=== PATIENT | female | born 1935 | race Caucasian/White ===

== ENCOUNTER → 2017-08-25 12:16 | Outpatient (CLI) | payer MEDICARE, SELFPAY ==
[2017-08-25 12:50] LABS: INR 2.3 (0.9-1.3); Prothrombin Time 24.4 SECONDS (10.1-12.7)
== END ==
PROVIDERS: Family Provider Family Medicine; PCP Family Medicine; Visit Provider Internal Medicine Cardiovascular Disease
DX: I48.2 Chronic atrial fibrillation (principal)
CPT/HCPCS: 36415; 85610

== ENCOUNTER → 2017-09-23 11:57 | Outpatient (CLI) | payer MEDICARE, SELFPAY ==
[2017-09-09 12:27] VITALS: BMI 21.6
[2017-09-23 13:30] LABS: INR 2.9 (0.9-1.3)
== END ==
PROVIDERS: Family Provider Family Medicine; PCP Family Medicine; Visit Provider Internal Medicine Cardiovascular Disease
DX: I48.2 Chronic atrial fibrillation (principal)
CPT/HCPCS: 36415; 85610

== ENCOUNTER → 2017-10-02 09:58 | Outpatient (CLI) | payer MEDICARE, SELFPAY ==
[2017-09-09 12:27] VITALS: BMI 21.6
[2017-10-02 11:20] LABS: Alanine Aminotransferase 25 IU/L (9-52); Albumin 4.1 g/dL (3.5-5.0); Albumin Globulin Ratio 1.6 (1.0-2.8); Alkaline Phosphatase 49 U/L (38-126); Aspartate Aminotransferase 23 IU/L (14-36); BUN Creatinine Ratio 25.5 (6-22); Bilirubin Total 1.1 mg/dL (0.2-1.3); Blood Urea Nitrogen 28 mg/dL (7-17); Calcium 9.3 mg/dL (8.4-10.2); Carbon Dioxide 31 mmol/L (22-32); Chloride 102 mmol/L (98-107); Estimated Glomerular Filt Rate 47.4 mL/min (>60); Globulin 2.6 g/dL (1.7-4.1); Glucose 86 mg/dL (80-110); HEMOLYSIS < 15 (0-50); Magnesium 2.1 mg/dL (1.6-2.3); Potassium 4.9 mmol/L (3.4-5.1); Sodium 142 mmol/L (137-145); Total Protein 6.7 g/dL (6.3-8.2)
== END ==
PROVIDERS: Family Provider Family Medicine; PCP Family Medicine; Visit Provider Internal Medicine Cardiovascular Disease
DX: I50.21 Acute systolic (congestive) heart failure (principal)
CPT/HCPCS: 36415; 80053; 83735

== ENCOUNTER → 2017-10-29 10:41 | Outpatient (CLI) | payer MEDICARE, SELFPAY ==
[2017-09-09 12:27] VITALS: BMI 21.6
[2017-10-29 12:11] LABS: INR 2.1 (0.9-1.3); Prothrombin Time 22.2 SECONDS (10.1-12.7)
== END ==
PROVIDERS: Family Provider Family Medicine; PCP Family Medicine; Visit Provider Internal Medicine Cardiovascular Disease
DX: I48.2 Chronic atrial fibrillation (principal)
CPT/HCPCS: 36415; 85610

== ENCOUNTER → 2017-11-12 12:07 | Outpatient (CLI) | payer MEDICARE, SELFPAY ==
[2017-09-09 12:27] VITALS: BMI 21.6
[2017-11-12 13:36] LABS: INR 2.3 (0.9-1.3); Prothrombin Time 25.9 SECONDS (10.1-12.7)
== END ==
PROVIDERS: Family Provider Family Medicine; PCP Family Medicine; Visit Provider Internal Medicine Cardiovascular Disease
DX: I48.2 Chronic atrial fibrillation (principal)
CPT/HCPCS: 36415; 85610

== ENCOUNTER → 2017-11-26 08:23 | Outpatient (CLI) | payer MEDICARE, SELFPAY ==
[2017-11-25 12:28] VITALS: BMI 21.6
[2017-11-26 10:32] LABS: INR 1.5 (0.9-1.3); Prothrombin Time 16.2 SECONDS (10.1-12.7)
== END ==
PROVIDERS: Family Provider Family Medicine; PCP Family Medicine; Visit Provider Internal Medicine Cardiovascular Disease
DX: I48.2 Chronic atrial fibrillation (principal)
CPT/HCPCS: 36415; 85610

== ENCOUNTER → 2017-12-01 09:08 | Outpatient (CLI) | payer MEDICARE, SELFPAY ==
[2017-11-25 12:28] VITALS: BMI 21.6
[2017-12-01 09:31] LABS: Add Manual Diff / Slide Review NO; Basophils Percent Auto 0.8 % (0-2); Eosinophils Percent Auto 2.1 % (2-4); Hematocrit 32.5 % (36-46); Hemoglobin 10.7 g/dL (12.0-16.0); Lymphocytes Percent Auto 12.2 % (25-40); Mean Corpuscular Volume 96.9 fL (80-100); Monocytes Percent Auto 8.8 % (3-14); Neutrophils Absolute Auto 6000 /uL (3000-5900); Neutrophils Percent Auto 76.1 % (50-75); Red Blood Cell Count 3.36 X10^6/uL (4.0-5.2); White Blood Cell Count 7.9 X10^3/uL (4.5-11.0)
[2017-12-01 09:33] LABS: Platelet Count 38 X10^3/uL (150-400)
[2017-12-01 09:51] LABS: Platelet Estimate Adequate on smear
[2017-12-01 09:52] LABS: Platelet Clumps 3; Platelet Morphology Comment PLATELET CLUMPING
[2017-12-01 10:08] LABS: INR 2.9 (0.9-1.3); Prothrombin Time 32.1 SECONDS (10.1-12.7)
== END ==
PROVIDERS: Family Provider Family Medicine; PCP Family Medicine; Visit Provider Physician Assistant
DX: I48.2 Chronic atrial fibrillation (principal); Z98.890 Other specified postprocedural states; Z95.1 Presence of aortocoronary bypass graft; D69.6 Thrombocytopenia, unspecified
CPT/HCPCS: 36415; 85025; 85610

== ENCOUNTER → 2017-12-04 08:44 | Outpatient (CLI) | payer MEDICARE, SELFPAY ==
[2017-11-25 12:28] VITALS: BMI 21.6
[2017-12-04 09:14] LABS: INR 2.8 (0.9-1.3)
[2017-12-04 10:26] LABS: Platelet Count 72 X10^3/uL (150-400)
== END ==
PROVIDERS: Family Provider Family Medicine; PCP Family Medicine; Visit Provider Internal Medicine Cardiovascular Disease
DX: I48.2 Chronic atrial fibrillation (principal); Z79.01 Long term (current) use of anticoagulants; Z98.890 Other specified postprocedural states; D69.6 Thrombocytopenia, unspecified
CPT/HCPCS: 36415; 85049; 85610

== ENCOUNTER → 2017-12-08 09:05 | Outpatient (CLI) | payer MEDICARE, SELFPAY ==
[2017-11-25 12:28] VITALS: BMI 21.6
[2017-12-08 09:31] LABS: INR 2.8 (0.9-1.3); Prothrombin Time 31.4 SECONDS (10.1-12.7)
[2018-01-08 13:34] LABS: Prothrombin Time 54.4 SECONDS (10.1-12.7)
[2018-01-08 14:02] LABS: INR 4.9 (0.9-1.3)
== END ==
PROVIDERS: PCP Family Medicine; Visit Provider Internal Medicine Cardiovascular Disease
DX: I48.2 Chronic atrial fibrillation (principal)
CPT/HCPCS: 36415; 85610

== ENCOUNTER → 2017-12-16 10:24 | Outpatient (CLI) | payer MEDICARE, SELFPAY ==
[2017-11-25 12:28] VITALS: BMI 21.6
[2017-12-16 11:31] LABS: INR 4.2 (0.9-1.3); Prothrombin Time 46.1 SECONDS (10.1-12.7)
== END ==
PROVIDERS: Family Provider Family Medicine; PCP Family Medicine; Visit Provider Internal Medicine Cardiovascular Disease
DX: I48.2 Chronic atrial fibrillation (principal)
CPT/HCPCS: 36415; 85610

== ENCOUNTER → 2017-12-25 10:50 | Outpatient (CLI) | payer MEDICARE, SELFPAY ==
[2017-11-25 12:28] VITALS: BMI 21.6
[2017-12-25 12:47] LABS: INR 2.3 (0.9-1.3); Prothrombin Time 25.8 SECONDS (10.1-12.7)
== END ==
PROVIDERS: Family Provider Family Medicine; PCP Family Medicine; Visit Provider Internal Medicine Cardiovascular Disease
DX: I48.2 Chronic atrial fibrillation (principal)
CPT/HCPCS: 36415; 85610

== ENCOUNTER → 2018-01-08 11:46 | Outpatient (CLI) | payer MEDICARE, SELFPAY ==
[2017-11-25 12:28] VITALS: BMI 21.6
== END ==
PROVIDERS: Visit Provider Internal Medicine Cardiovascular Disease
DX: I50.21 Acute systolic (congestive) heart failure (principal)

== ENCOUNTER → 2018-01-21 13:21 | Outpatient (CLI) | payer MEDICARE, SELFPAY ==
[2017-11-25 12:28] VITALS: BMI 21.6
[2018-01-21 14:26] LABS: INR 2.2 (0.9-1.3); Prothrombin Time 24.5 SECONDS (10.1-12.7)
== END ==
PROVIDERS: Family Provider Family Medicine; Visit Provider Pharmacist
DX: I48.2 Chronic atrial fibrillation (principal)
CPT/HCPCS: 36415; 85610

== ENCOUNTER → 2018-02-04 13:53 | Outpatient (CLI) | payer MEDICARE, SELFPAY ==
[2017-11-25 12:28] VITALS: BMI 21.6
[2018-02-04 15:33] LABS: INR 2.6 (0.9-1.3); Prothrombin Time 28.3 SECONDS (10.1-12.7)
== END ==
PROVIDERS: Visit Provider Internal Medicine Cardiovascular Disease
DX: I48.2 Chronic atrial fibrillation (principal)
CPT/HCPCS: 36415; 85610

== ENCOUNTER → 2018-02-25 14:00 | Outpatient (CLI) | payer MEDICARE, SELFPAY ==
[2017-11-25 12:28] VITALS: BMI 21.6
[2018-02-25 15:09] LABS: INR 2.1 (0.9-1.3); Prothrombin Time 23.3 SECONDS (10.1-12.7)
== END ==
PROVIDERS: Family Provider Family Medicine; PCP Family Medicine; Visit Provider Internal Medicine Cardiovascular Disease
DX: I48.2 Chronic atrial fibrillation (principal)
CPT/HCPCS: 36415; 85610

== ENCOUNTER → 2018-04-13 11:17 | Outpatient (CLI) | payer MEDICARE, SELFPAY ==
[2017-11-25 12:28] VITALS: BMI 21.6
[2018-04-13 12:24] LABS: INR 2.1 (0.9-1.3); Prothrombin Time 23.9 SECONDS (10.1-12.7)
== END ==
PROVIDERS: PCP Family Medicine; Visit Provider Internal Medicine Cardiovascular Disease
DX: I48.2 Chronic atrial fibrillation (principal)
CPT/HCPCS: 36415; 85610

== ENCOUNTER → 2018-06-22 10:24 | Outpatient (CLI) | payer MEDICARE, SELFPAY ==
[2017-11-25 12:28] VITALS: BMI 21.6
[2018-06-22 12:00] LABS: INR 2.6 (0.9-1.3); Prothrombin Time 30.7 SECONDS (10.1-12.7)
== END ==
PROVIDERS: Family Provider Family Medicine; PCP Family Medicine; Visit Provider Internal Medicine Cardiovascular Disease
DX: I48.2 Chronic atrial fibrillation (principal)
CPT/HCPCS: 36415; 85610

== ENCOUNTER → 2018-07-23 11:31 | Outpatient (CLI) | payer MEDICARE, SELFPAY ==
[2017-11-25 12:28] VITALS: BMI 21.6
[2018-07-23 12:45] LABS: INR 2.4 (0.9-1.3); Prothrombin Time 28.4 SECONDS (10.1-12.7)
== END ==
PROVIDERS: Family Provider Family Medicine; Visit Provider Internal Medicine Cardiovascular Disease
DX: I48.2 Chronic atrial fibrillation (principal)
CPT/HCPCS: 36415; 85610

== ENCOUNTER → 2018-07-24 12:15 | Outpatient (CLI) | payer MEDICARE, SELFPAY ==
[2017-11-25 12:28] VITALS: BMI 21.6
--- NOTE | 2018-07-24 | DI.MG.S_ITS ---
BILATERAL DIGITAL SCREENING MAMMOGRAM 3D/2D WITH CAD: 07/24/2018 CLINICAL: Routine screening. Comparison is made to exams dated: 07/25/2016 mammogram, 08/15/2014 mammogram - [facility], and 06/16/2012 mammogram - [facility]. The tissue of both breasts is heterogeneously dense. This may lower the sensitivity of mammography. Current study was also evaluated with a Computer Aided Detection (CAD) system. There are benign calcifications in both breasts. No significant masses, calcifications, or other findings are seen in either breast. There has been no significant interval change. IMPRESSION: There is no mammographic evidence of malignancy. A 1 year screening mammogram is recommended. This exam was interpreted at Station ID: [id number]. NOTE: For mammograms, a report in lay terms will be sent to the patient. Approximately 15% of breast malignancies will not be visualized mammographically. In the management of a palpable breast mass, a negative mammogram must not discourage biopsy of a clinically suspicious lesion. Electronically Signed By: Catrachito spain/glenn:07/24/2018 14:53:12 letter sent: Normal Exam ACR BI-RADS Category 2: Benign Finding(s) 3342F
== END ==
PROVIDERS: Family Provider Family Medicine; PCP Family Medicine; Visit Provider Family Medicine
DX: Z12.31 Encounter for screening mammogram for malignant neoplasm of breast (principal)
CPT/HCPCS: 77063; 77067

== ENCOUNTER → 2018-08-25 12:08 | Outpatient (CLI) | payer MEDICARE, SELFPAY ==
[2017-11-25 12:28] VITALS: BMI 21.6
[2018-08-25 12:39] LABS: INR 1.9 (0.9-1.3); Prothrombin Time 22.7 SECONDS (10.1-12.7)
== END ==
PROVIDERS: Family Provider Family Medicine; PCP Family Medicine; Visit Provider Internal Medicine Cardiovascular Disease
DX: I48.2 Chronic atrial fibrillation (principal)
CPT/HCPCS: 36415; 85610

== ENCOUNTER → 2018-09-15 11:40 | Outpatient (CLI) | payer MEDICARE, SELFPAY ==
[2017-11-25 12:28] VITALS: BMI 21.6
[2018-09-15 13:05] LABS: INR 2.3 (0.9-1.3); Prothrombin Time 27.2 SECONDS (10.1-12.7)
== END ==
PROVIDERS: Family Provider Family Medicine; PCP Family Medicine; Visit Provider Internal Medicine Cardiovascular Disease
DX: I48.2 Chronic atrial fibrillation (principal)
CPT/HCPCS: 36415; 85610

== ENCOUNTER → 2018-10-13 15:20 | Outpatient (CLI) | payer MEDICARE, SELFPAY ==
[2017-11-25 12:28] VITALS: BMI 21.6
[2018-10-13 15:53] LABS: INR 2.9 (0.9-1.3); Prothrombin Time 34.5 SECONDS (10.1-12.7)
== END ==
PROVIDERS: Family Provider Family Medicine; PCP Family Medicine; Visit Provider Internal Medicine Cardiovascular Disease
DX: I48.91 Unspecified atrial fibrillation (principal)
CPT/HCPCS: 36415; 85610

== ENCOUNTER → 2018-11-12 13:28 | Outpatient (CLI) | payer MEDICARE, SELFPAY ==
[2017-11-25 12:28] VITALS: BMI 21.6
[2018-11-12 14:59] LABS: INR 3.7 (0.9-1.3); Prothrombin Time 43.3 SECONDS (10.1-12.7)
== END ==
PROVIDERS: PCP Family Medicine; Visit Provider Internal Medicine Cardiovascular Disease
DX: I48.2 Chronic atrial fibrillation (principal)
CPT/HCPCS: 36415; 85610

== ENCOUNTER → 2018-11-26 09:01 | Outpatient (CLI) | payer MEDICARE, SELFPAY ==
[2017-11-25 12:28] VITALS: BMI 21.6
[2018-11-26 09:45] LABS: INR 2.4 (0.9-1.3); Prothrombin Time 27.8 SECONDS (10.1-12.7)
== END ==
PROVIDERS: Family Provider Family Medicine; PCP Family Medicine; Visit Provider Internal Medicine Cardiovascular Disease
DX: I48.2 Chronic atrial fibrillation (principal)
CPT/HCPCS: 36415; 85610

== ENCOUNTER → 2018-12-22 09:29 | Outpatient (CLI) | payer MEDICARE, SELFPAY ==
[2017-11-25 12:28] VITALS: BMI 21.6
[2018-12-22 10:33] LABS: INR 2.1 (0.9-1.3); Prothrombin Time 23.9 SECONDS (10.1-12.7)
== END ==
PROVIDERS: PCP Family Medicine; Visit Provider Internal Medicine Cardiovascular Disease
DX: I48.2 Chronic atrial fibrillation (principal)
CPT/HCPCS: 36415; 85610

== ENCOUNTER → 2019-01-19 13:31 | Outpatient (CLI) | payer MEDICARE, SELFPAY ==
[2017-11-25 12:28] VITALS: BMI 21.6
[2019-01-19 14:44] LABS: INR 2.5 (0.9-1.3)
== END ==
PROVIDERS: Family Provider Family Medicine; PCP Family Medicine; Visit Provider Internal Medicine Cardiovascular Disease
DX: I48.20 Chronic atrial fibrillation, unspecified (principal)
CPT/HCPCS: 36415; 85610

== ENCOUNTER → 2019-02-10 14:09 | Outpatient (CLI) | payer MEDICARE, SELFPAY ==
[2017-11-25 12:28] VITALS: BMI 21.6
[2019-02-10 15:04] LABS: Prothrombin Time 23.2 SECONDS (10.1-12.7)
== END ==
PROVIDERS: Family Provider Family Medicine; PCP Family Medicine; Visit Provider Internal Medicine Cardiovascular Disease
DX: I48.20 Chronic atrial fibrillation, unspecified (principal); R06.02 Shortness of breath; D64.89 Other specified anemias; D69.6 Thrombocytopenia, unspecified; I50.22 Chronic systolic (congestive) heart failure
CPT/HCPCS: 36415; 85610

== ENCOUNTER → 2019-03-24 15:56 | Outpatient (CLI) | payer MEDICARE, SELFPAY ==
[2017-11-25 12:28] VITALS: BMI 21.6
[2019-03-24 17:01] LABS: INR 2.5 (0.9-1.3); Prothrombin Time 29.9 SECONDS (10.1-12.7)
== END ==
PROVIDERS: Family Provider Family Medicine; PCP Family Medicine; Visit Provider Internal Medicine Cardiovascular Disease
DX: I48.20 Chronic atrial fibrillation, unspecified (principal)
CPT/HCPCS: 36415; 85610

== ENCOUNTER → 2019-05-10 09:57 | Outpatient (CLI) | payer MEDICARE, SELFPAY ==
[2017-11-25 12:28] VITALS: BMI 21.6
[2019-05-10 10:51] LABS: INR 2.3 (0.9-1.3); Prothrombin Time 26.7 SECONDS (10.1-12.7)
== END ==
PROVIDERS: Family Provider Family Medicine; PCP Family Medicine; Visit Provider Family Medicine
DX: I48.20 Chronic atrial fibrillation, unspecified (principal)
CPT/HCPCS: 36415; 85610

== ENCOUNTER → 2019-07-12 13:45 | Outpatient (CLI) | payer MEDICARE, SELFPAY ==
[2017-11-25 12:28] VITALS: BMI 21.6
[2019-07-12 15:06] LABS: INR 2.4 (0.9-1.3); Prothrombin Time 27.9 SECONDS (10.1-12.7)
== END ==
PROVIDERS: Family Provider Family Medicine; PCP Family Medicine; Referring Provider Family Medicine; Visit Provider Internal Medicine Cardiovascular Disease
DX: I48.20 Chronic atrial fibrillation, unspecified (principal)
CPT/HCPCS: 36415; 85610

== ENCOUNTER → 2019-09-28 14:00 | Outpatient (CLI) | payer MEDICARE, SELFPAY ==
[2017-11-25 12:28] VITALS: BMI 21.6
[2019-09-28 14:53] LABS: Prothrombin Time 33.9 SECONDS (10.1-12.7)
== END ==
PROVIDERS: Family Provider Family Medicine; PCP Family Medicine; Referring Provider Internal Medicine Cardiovascular Disease; Visit Provider Internal Medicine Cardiovascular Disease
DX: I48.20 Chronic atrial fibrillation, unspecified (principal)
CPT/HCPCS: 36415; 85610

== ENCOUNTER → 2019-10-29 13:54 | Outpatient (CLI) | payer MEDICARE, SELFPAY ==
[2017-11-25 12:28] VITALS: BMI 21.6
--- NOTE | 2019-10-29 | DI.RAD.S_ITS ---
PROCEDURE: XR HIP W PEL IF DONE RT 2V INDICATIONS: right hip pain TECHNIQUE: 2 views of the hip were acquired. COMPARISON: None. FINDINGS: Bones: No fractures or dislocations. No suspicious bony lesions. The visualized pelvic ring appears intact. Mild joint narrowing with periarticular osteophyte formation. Degenerative disc and facet disease involves the inferior lumbar spine. Soft tissues: No suspicious soft tissue calcifications or masses. Vascular calcifications indicate atherosclerosis. IMPRESSION: Mild symmetric hip joint degeneration. Dictated by: Cristhian Cyr [facility] Interpreted: Bridger Jackson MD on 10/29/2019 at 14:49 Approved by: Bridger Jackson M.D. on 10/29/2019 at 15:52
--- NOTE | 2019-10-29 | DI.RAD.S_ITS ---
PROCEDURE: XR SACROILIAC JOINT MIN 3V INDICATIONS: SI joint disorder TECHNIQUE: 3 views of the sacroiliac joints were acquired. COMPARISON: None. FINDINGS: Bones: No bony erosions or ankylosis. No suspicious bony lesions. No fractures. Mild joint narrowing with periarticular osteophyte formation. Degenerative disc and facet disease involves the inferior lumbar spine. Soft tissues: Overlying bowel gas pattern is normal. No suspicious soft tissue densities. IMPRESSION: Mild symmetric SI joint degeneration. Dictated by: Cristhian Cyr [facility] Interpreted: Bridger Jackson MD on 10/29/2019 at 14:48 Approved by: Bridger Jackson M.D. on 10/29/2019 at 15:52
== END ==
PROVIDERS: Family Provider Family Medicine; PCP Family Medicine; Referring Provider Family Medicine; Visit Provider Family Medicine
DX: M53.3 Sacrococcygeal disorders, not elsewhere classified (principal); M47.818 Spondylosis without myelopathy or radiculopathy, sacral and sacrococcygeal region; M25.551 Pain in right hip; M16.11 Unilateral primary osteoarthritis, right hip
CPT/HCPCS: 72202; 73502

== ENCOUNTER → 2019-11-12 10:10 | Outpatient (CLI) | payer MEDICARE, SELFPAY ==
[2017-11-25 12:28] VITALS: BMI 21.6
--- NOTE | 2019-11-12 | DI.MG.S_ITS ---
BILATERAL DIGITAL SCREENING MAMMOGRAM 3D/2D WITH CAD: 11/12/2019 CLINICAL: Routine screening. Comparison is made to exams dated: 07/24/2018 mammogram, 07/25/2016 mammogram, and 08/15/2014 mammogram - [facility]. There are scattered fibroglandular elements in both breasts. Current study was also evaluated with a Computer Aided Detection (CAD) system. There are benign calcifications in the left breast. There also are benign vascular calcifications in the right breast. No significant masses, calcifications, or other findings are seen in either breast. There has been no significant interval change. IMPRESSION: There is no mammographic evidence of malignancy. A 1 year screening mammogram is recommended. This exam was interpreted at Station ID: [id number]. NOTE: For mammograms, a report in lay terms will be sent to the patient. Approximately 15% of breast malignancies will not be visualized mammographically. In the management of a palpable breast mass, a negative mammogram must not discourage biopsy of a clinically suspicious lesion. Electronically Signed By: Sabrina moseley/glenn:11/12/2019 10:28:43 letter sent: Normal Exam ACR BI-RADS Category 2: Benign Finding(s) 3342F
== END ==
PROVIDERS: Family Provider Family Medicine; PCP Family Medicine; Referring Provider Family Medicine; Visit Provider Family Medicine
DX: Z12.31 Encounter for screening mammogram for malignant neoplasm of breast (principal)
CPT/HCPCS: 77063; 77067

== ENCOUNTER → 2020-02-02 10:00 | Outpatient (CLI) | payer MEDICARE, SELFPAY ==
[2017-11-25 12:28] VITALS: BMI 21.6
[2020-02-02 11:23] LABS: INR 3.7 (0.9-1.3); Prothrombin Time 41.8 SECONDS (10.1-12.7)
== END ==
PROVIDERS: Family Provider Family Medicine; PCP Family Medicine; Referring Provider Internal Medicine Cardiovascular Disease; Visit Provider Internal Medicine Cardiovascular Disease
DX: I48.20 Chronic atrial fibrillation, unspecified (principal)
CPT/HCPCS: 36415; 85610

== ENCOUNTER → 2020-02-23 12:30 | Outpatient (CLI) | payer MEDICARE, SELFPAY ==
[2017-11-25 12:28] VITALS: BMI 21.6
[2020-02-23 14:41] LABS: INR 2.8 (0.9-1.3); Prothrombin Time 32.6 SECONDS (10.1-12.7)
== END ==
PROVIDERS: Family Provider Family Medicine; PCP Family Medicine; Referring Provider Internal Medicine Cardiovascular Disease; Visit Provider Internal Medicine Cardiovascular Disease
DX: I48.20 Chronic atrial fibrillation, unspecified (principal)
CPT/HCPCS: 36415; 85610

== ENCOUNTER → 2020-03-29 15:51 | Outpatient (CLI) | payer MEDICARE, SELFPAY ==
[2017-11-25 12:28] VITALS: BMI 21.6
[2020-03-29 16:44] LABS: INR 3.1 (0.9-1.3); Prothrombin Time 35.9 SECONDS (10.1-12.7)
== END ==
PROVIDERS: Family Provider Family Medicine; PCP Family Medicine; Referring Provider Internal Medicine Cardiovascular Disease; Visit Provider Internal Medicine Cardiovascular Disease
DX: I48.20 Chronic atrial fibrillation, unspecified (principal)
CPT/HCPCS: 36415; 85610

== ENCOUNTER → 2020-03-30 17:50 | Outpatient (CLI) | payer MEDICARE, SELFPAY ==
[2017-11-25 12:28] VITALS: BMI 21.6
--- NOTE | 2020-03-30 17:52 | DI.MRI.S_ITS ---
PROCEDURE: MR LUMBAR SPINE WO CON INDICATIONS: LUMBAGO WITH SCIATICA, RIGHT SIDE TECHNIQUE: Noncontrast sagittal T1 spin echo and T2 fast echo, sagittal STIR, axial T1 and T2 fast spin echo through the lumbar spine. In cases with scoliosis, additional coronal T2 fast spin echo may be performed. COMPARISON: [facility], , SPINE LUMB 2 OR 3VW, 06/20/2016, 10:34. FINDINGS: Image quality: Excellent. Alignment and Curvature: Mild levo curvature is centered at L2. Bone Marrow: Marrow is of normal overall signal. Prominent S1 hemangioma incidentally noted. No acute vertebral body compression fractures. Spinal Cord: Conus medullaris terminates at the T12-L1 level. Visualized cord demonstrates normal signal and size. Paraspinous Soft Tissues: No paravertebral masses. T12-L1: Mild disc bulge. Mild facet hypertrophy. No canal stenosis or foraminal stenosis. L1-L2: Disc bulge. Facet and ligament hypertrophy. Mild canal stenosis. Mild bilateral foraminal stenosis. L2-L3: Disc bulge. Facet and ligament hypertrophy. Muyq-ka-heqabcdw canal stenosis. Mild bilateral foraminal stenosis. L3-L4: Disc bulge, facet and ligament hypertrophy. Mild central canal stenosis. A left lateral disc bulge may impinge on the left L4 nerve root in the left lateral recess. There is no impingement on the left L3 nerve root. There is mild bilateral foraminal narrowing. L4-L5: Disc bulge. Facet and ligament hypertrophy. Mild canal stenosis. Mild bilateral foraminal stenosis. L5-S1: There is a small focal left paracentral probably calcified disc protrusion which abuts the left S1 nerve root in the left lateral recess. The left S1 nerve root is not displaced by the small disc protrusion. No canal stenosis. No significant foraminal stenosis. IMPRESSION: 1. Multifactorial canal stenosis is mild at L1-L2, fzbg-jg-sisgctsy at L2-L3, mild at L3-L4, and mild at L4-L5. 2. Multilevel facet arthropathy. 3. At L3-L4, a left lateral disc bulge may impinge on the left L4 nerve root in the left lateral recess. 4. At L5-S1, a small left paracentral disc protrusion, which is probably calcified, abuts the left S1 nerve root in the left lateral recess. Dictated by: Bandar Bell M.D. on 03/31/2020 at 12:14 Approved by: Bandar Bell M.D. on 03/31/2020 at 12:25
== END ==
PROVIDERS: Family Provider Family Medicine; PCP Family Medicine; Referring Provider Family Medicine; Visit Provider Family Medicine
DX: M48.061 Spinal stenosis, lumbar region without neurogenic claudication (principal); M51.16 Intervertebral disc disorders with radiculopathy, lumbar region; M51.17 Intervertebral disc disorders with radiculopathy, lumbosacral region; M47.26 Other spondylosis with radiculopathy, lumbar region; G89.29 Other chronic pain
CPT/HCPCS: 72148

== ENCOUNTER → 2020-04-26 09:56 | Outpatient (CLI) | payer MEDICARE, SELFPAY ==
[2017-11-25 12:28] VITALS: BMI 21.6
[2020-04-26 11:07] LABS: INR 1.5 (0.9-1.3); Prothrombin Time 17.5 SECONDS (10.1-12.7)
== END ==
PROVIDERS: Family Provider Family Medicine; PCP Family Medicine; Referring Provider Internal Medicine Cardiovascular Disease; Visit Provider Internal Medicine Cardiovascular Disease
DX: I48.20 Chronic atrial fibrillation, unspecified (principal)
CPT/HCPCS: 36415; 85610

== ENCOUNTER → 2020-05-05 08:33 | Outpatient (CLI) | payer MEDICARE, SELFPAY ==
[2017-11-25 12:28] VITALS: BMI 21.6
[2020-05-05 09:22] LABS: INR 2.4 (0.9-1.3); Prothrombin Time 26.8 SECONDS (10.1-12.7)
== END ==
PROVIDERS: Family Provider Family Medicine; PCP Family Medicine; Referring Provider Internal Medicine Cardiovascular Disease; Visit Provider Internal Medicine Cardiovascular Disease
DX: I48.20 Chronic atrial fibrillation, unspecified (principal)
CPT/HCPCS: 36415; 85610

== ENCOUNTER → 2020-05-12 09:20 | Outpatient (CLI) | payer MEDICARE, SELFPAY ==
[2017-11-25 12:28] VITALS: BMI 21.6
[2020-05-12] MEDS: COVID-19 VACC #1, MRNA(MOD) 100 MCG/0.5 ML VIAL IM (09:28)
== END ==
PROVIDERS: Family Provider Family Medicine; PCP Family Medicine; Visit Provider Internal Medicine
DX: Z23 Encounter for immunization (principal)
CPT/HCPCS: 0011A; 91301

== ENCOUNTER → 2020-05-15 14:07 | Outpatient (CLI) | payer MEDICARE, SELFPAY ==
[2017-11-25 12:28] VITALS: BMI 21.6
[2020-05-15 14:57] LABS: INR 3.1 (0.9-1.3); Prothrombin Time 35.1 SECONDS (10.1-12.7)
== END ==
PROVIDERS: Family Provider Family Medicine; PCP Family Medicine; Referring Provider Internal Medicine Cardiovascular Disease; Visit Provider Internal Medicine Cardiovascular Disease
DX: I48.20 Chronic atrial fibrillation, unspecified (principal)
CPT/HCPCS: 36415; 85610

== ENCOUNTER → 2020-05-29 13:44 | Outpatient (CLI) | payer MEDICARE, SELFPAY ==
[2017-11-25 12:28] VITALS: BMI 21.6
[2020-05-29 15:24] LABS: INR 2.5 (0.9-1.3); Prothrombin Time 28.8 SECONDS (10.1-12.7)
== END ==
PROVIDERS: Family Provider Family Medicine; PCP Family Medicine; Referring Provider Internal Medicine Cardiovascular Disease; Visit Provider Internal Medicine Cardiovascular Disease
DX: I48.20 Chronic atrial fibrillation, unspecified (principal)
CPT/HCPCS: 36415; 85610

== ENCOUNTER → 2020-06-09 09:12 | Outpatient (CLI) | payer MEDICARE, SELFPAY ==
[2017-11-25 12:28] VITALS: BMI 21.6
[2020-06-09] MEDS: COVID-19 VACC #2, MRNA(MOD) 100 MCG/0.5 ML VIAL IM (09:21)
== END ==
PROVIDERS: Family Provider Family Medicine; PCP Family Medicine; Visit Provider Internal Medicine
DX: Z23 Encounter for immunization (principal)
CPT/HCPCS: 0012A; 91301

== ENCOUNTER → 2020-06-26 10:49 | Outpatient (CLI) | payer MEDICARE, SELFPAY ==
[2017-11-25 12:28] VITALS: BMI 21.6
[2020-06-26 12:39] LABS: INR 2.9 (0.9-1.3); Prothrombin Time 32.8 SECONDS (10.1-12.7)
== END ==
PROVIDERS: Family Provider Family Medicine; PCP Family Medicine; Referring Provider Internal Medicine Cardiovascular Disease; Visit Provider Internal Medicine Cardiovascular Disease
DX: I48.20 Chronic atrial fibrillation, unspecified (principal)
CPT/HCPCS: 36415; 85610

== ENCOUNTER → 2020-07-24 10:13 | Outpatient (CLI) | payer MEDICARE, SELFPAY ==
[2017-11-25 12:28] VITALS: BMI 21.6
[2020-07-24 12:00] LABS: INR 2.6 (0.9-1.3); Prothrombin Time 29.3 SECONDS (10.1-12.7)
== END ==
PROVIDERS: Family Provider Family Medicine; PCP Family Medicine; Referring Provider Internal Medicine Cardiovascular Disease; Visit Provider Internal Medicine Cardiovascular Disease
DX: I48.20 Chronic atrial fibrillation, unspecified (principal)
CPT/HCPCS: 36415; 85610

== ENCOUNTER → 2020-07-27 10:45 | Outpatient (CLI) | payer MEDICARE, SELFPAY ==
[2017-11-25 12:28] VITALS: BMI 21.6
--- NOTE | 2020-07-27 10:57 | DI.CT.S_ITS ---
PROCEDURE: CT SINUS SCREEN WO CON INDICATIONS: Chronic pansinusitis TECHNIQUE: Noncontrast 3.0 mm axial images acquired from the frontal sinuses to the mid-sella, with coronal and sagittal reformats. For radiation dose reduction, the following was used: automated exposure control, adjustment of mA and/or kV according to patient size. COMPARISON: None. FINDINGS: Image quality: Excellent. Paranasal sinuses are normally aerated. Mild mucosal thickening noted in the floor of the right maxillary sinus. No air-fluid levels in the paranasal sinuses. The ostiomeatal units are patent bilaterally. No osseous thickening, osseous remodeling or osseous erosive changes. Nasal septum is deviated to the left. No fausto bullosa or paradoxical turbinates. Type 2 cribriform plate is noted. No variance in the ethmoid roof anatomy. The right anterior ethmoid artery notches protected. Left anterior artery notches at risk. Type 1 left frontal recess cell noted. Sphenoid pneumatization pattern is sellar complete. Multiple sphenoid inter sinus septa noted. Left sphenoid inter sinus septum is deviated to the left and attach is to the left optic canal. Type 1 right optic canal and type 3 left optic canal. Atherosclerotic calcifications noted in the cavernous and clinoid segments of the internal carotid arteries bilaterally. IMPRESSION: 1. Mild right maxillary sinus mucosal thickening. 2. No air-fluid levels. 3. Variant paranasal sinus anatomy as described above. Dictated by: Ana Adler MD, PhD on 07/27/2020 at 11:06 Approved by: Ana Adler MD, PhD on 07/27/2020 at 11:11
== END ==
PROVIDERS: Family Provider Family Medicine; PCP Family Medicine; Referring Provider Otolaryngology; Visit Provider Otolaryngology
DX: R51.9 Headache, unspecified (principal); K08.89 Other specified disorders of teeth and supporting structures; J32.4 Chronic pansinusitis; R09.89 Other specified symptoms and signs involving the circulatory and respiratory systems
CPT/HCPCS: 70486

== ENCOUNTER → 2020-08-29 11:07 | Outpatient (CLI) | payer MEDICARE, SELFPAY ==
[2017-11-25 12:28] VITALS: BMI 21.6
[2020-08-29 12:11] LABS: INR 3.1 (0.9-1.3); Prothrombin Time 36.6 SECONDS (10.1-12.7)
== END ==
PROVIDERS: Family Provider Family Medicine; PCP Family Medicine; Referring Provider Internal Medicine Cardiovascular Disease; Visit Provider Internal Medicine Cardiovascular Disease
DX: I48.20 Chronic atrial fibrillation, unspecified (principal)
CPT/HCPCS: 36415; 85610

== ENCOUNTER → 2020-10-03 12:30 | Outpatient (CLI) | payer MEDICARE, SELFPAY ==
[2017-11-25 12:28] VITALS: BMI 21.6
[2020-10-03 13:50] LABS: Prothrombin Time 54.7 SECONDS (10.1-12.7)
[2020-10-03 15:00] LABS: INR 4.7 (0.9-1.3)
== END ==
PROVIDERS: Family Provider Family Medicine; PCP Family Medicine; Referring Provider Internal Medicine Cardiovascular Disease; Visit Provider Internal Medicine Cardiovascular Disease
DX: I48.20 Chronic atrial fibrillation, unspecified (principal)
CPT/HCPCS: 36415; 85610

== ENCOUNTER → 2020-10-17 11:28 | Outpatient (CLI) | payer MEDICARE, SELFPAY ==
[2017-11-25 12:28] VITALS: BMI 21.6
--- NOTE | 2020-10-17 | DI.RAD.S_ITS ---
PROCEDURE: XR CHEST 2V INDICATIONS: dyspnea TECHNIQUE: 2 views of the chest were acquired. COMPARISON: [facility], , CHEST 2 VIEW, 03/07/2017, 13:27. FINDINGS: Surgical changes and devices: Median sternotomy wires, atrial clip, and prosthetic heart valve are seen. Lungs and pleura: Mild pulmonary vascular congestion is seen, no definite focal infiltrate. No pleural effusions or pneumothorax. Mediastinum: Mediastinal contours are normal. Heart size is enlarged. Bones and chest wall: No suspicious bony abnormalities. Soft tissues appear unremarkable. IMPRESSION: Cardiomegaly and mild congestion. No definite focal infiltrate, significant pleural effusion or pneumothorax. Dictated by: Nick Trimble M.D. on 10/17/2020 at 13:54 Approved by: Nick Trimble M.D. on 10/17/2020 at 13:54
[2020-10-17 12:47] LABS: INR 2.9 (0.9-1.3)
== END ==
PROVIDERS: Family Provider Family Medicine; PCP Family Medicine; Referring Provider Internal Medicine Cardiovascular Disease; Visit Provider Internal Medicine Cardiovascular Disease
DX: I48.20 Chronic atrial fibrillation, unspecified (principal); R06.00 Dyspnea, unspecified
CPT/HCPCS: 36415; 71046; 85610

== ENCOUNTER → 2020-10-30 15:39 | Outpatient (CLI) | payer MEDICARE, SELFPAY ==
[2017-11-25 12:28] VITALS: BMI 21.6
[2020-10-30 18:08] LABS: INR 2.5 (0.9-1.3)
== END ==
PROVIDERS: Family Provider Family Medicine; PCP Family Medicine; Referring Provider Internal Medicine Cardiovascular Disease; Visit Provider Internal Medicine Cardiovascular Disease
DX: I48.20 Chronic atrial fibrillation, unspecified (principal)
CPT/HCPCS: 36415; 85610

== ENCOUNTER → 2020-11-16 14:02 | Outpatient (CLI) | payer MEDICARE, SELFPAY ==
[2017-11-25 12:28] VITALS: BMI 21.6
--- NOTE | 2020-11-16 14:04 | DI.MG.S_ITS ---
BILATERAL DIGITAL SCREENING MAMMOGRAM 3D/2D WITH CAD: 11/16/2020 CLINICAL: Routine screening. Comparison is made to exams dated: 11/12/2019 mammogram, 07/24/2018 mammogram, and 07/25/2016 mammogram - [facility]. The tissue of both breasts is heterogeneously dense. This may lower the sensitivity of mammography. Current study was also evaluated with a Computer Aided Detection (CAD) system. There are benign calcifications in the left breast. There also are benign vascular calcifications in the right breast. No significant masses, calcifications, or other findings are seen in either breast. There has been no significant interval change. IMPRESSION: BENIGN There is no mammographic evidence of malignancy. A 1 year screening mammogram is recommended. This exam was interpreted at Station ID: [id number]. NOTE: For mammograms, a report in lay terms will be sent to the patient. Approximately 15% of breast malignancies will not be visualized mammographically. In the management of a palpable breast mass, a negative mammogram must not discourage biopsy of a clinically suspicious lesion. Electronically Signed By: Panfilo craig/glenn:11/16/2020 14:33:19 letter sent: Normal Exam ACR BI-RADS Category 2: Benign Finding(s) 3342F
== END ==
PROVIDERS: Family Provider Family Medicine; PCP Family Medicine; Referring Provider Family Medicine; Visit Provider Family Medicine
DX: Z12.31 Encounter for screening mammogram for malignant neoplasm of breast (principal)
CPT/HCPCS: 77063; 77067

== ENCOUNTER → 2021-01-02 09:27 | Outpatient (CLI) | payer MEDICARE, SELFPAY ==
[2017-11-25 12:28] VITALS: BMI 21.6
[2021-01-02 10:29] LABS: INR 4.1 (0.9-1.3)
== END ==
PROVIDERS: Family Provider Family Medicine; PCP Family Medicine; Referring Provider Internal Medicine Cardiovascular Disease; Visit Provider Internal Medicine Cardiovascular Disease
DX: I48.20 Chronic atrial fibrillation, unspecified (principal)
CPT/HCPCS: 36415; 85610

== ENCOUNTER → 2021-01-16 12:08 | Outpatient (CLI) | payer MEDICARE, SELFPAY ==
[2017-11-25 12:28] VITALS: BMI 21.6
[2021-01-16 13:06] LABS: INR 3.3 (0.9-1.3); Prothrombin Time 38.5 SECONDS (10.1-12.7)
== END ==
PROVIDERS: Family Provider Family Medicine; PCP Family Medicine; Referring Provider Internal Medicine Cardiovascular Disease; Visit Provider Internal Medicine Cardiovascular Disease
DX: I48.20 Chronic atrial fibrillation, unspecified (principal)
CPT/HCPCS: 36415; 85610

== ENCOUNTER → 2021-01-30 11:01 | Outpatient (CLI) | payer MEDICARE, SELFPAY ==
[2017-11-25 12:28] VITALS: BMI 21.6
[2021-01-30 12:42] LABS: INR 2.7 (0.9-1.3); Prothrombin Time 30.8 SECONDS (10.1-12.7)
== END ==
PROVIDERS: Family Provider Family Medicine; PCP Family Medicine; Referring Provider Internal Medicine Cardiovascular Disease; Visit Provider Internal Medicine Cardiovascular Disease
DX: I48.20 Chronic atrial fibrillation, unspecified (principal)
CPT/HCPCS: 36415; 85610

== ENCOUNTER → 2021-02-20 14:46 | Outpatient (CLI) | payer MEDICARE, SELFPAY ==
[2017-11-25 12:28] VITALS: BMI 21.6
[2021-02-20 17:21] LABS: INR 3.4 (0.9-1.3); Prothrombin Time 40.1 SECONDS (10.1-12.7)
== END ==
PROVIDERS: Family Provider Family Medicine; PCP Family Medicine; Referring Provider Internal Medicine Cardiovascular Disease; Visit Provider Internal Medicine Cardiovascular Disease
DX: I48.20 Chronic atrial fibrillation, unspecified (principal)
CPT/HCPCS: 36415; 85610

== ENCOUNTER → 2021-02-23 11:20 | Outpatient (CLI) | payer MEDICARE, SELFPAY ==
[2017-11-25 12:28] VITALS: BMI 21.6
[2021-02-23] MEDS: COVID-19 VACC #3, MRNA(MOD) 50 MCG/0.25 ML VIAL IM (11:34)
== END ==
PROVIDERS: Family Provider Family Medicine; PCP Family Medicine; Visit Provider Internal Medicine
DX: Z23 Encounter for immunization (principal)
CPT/HCPCS: 0013A; 91301

== ENCOUNTER → 2021-03-07 15:32 | Outpatient (CLI) | payer MEDICARE, SELFPAY ==
[2017-11-25 12:28] VITALS: BMI 21.6
[2021-03-07 16:54] LABS: INR 2.5 (0.9-1.3); Prothrombin Time 28.6 SECONDS (10.1-12.7)
== END ==
PROVIDERS: Family Provider Family Medicine; PCP Family Medicine; Referring Provider Internal Medicine Cardiovascular Disease; Visit Provider Internal Medicine Cardiovascular Disease
DX: I48.20 Chronic atrial fibrillation, unspecified (principal)
CPT/HCPCS: 36415; 85610

== ENCOUNTER → 2021-03-22 07:35 | Outpatient (CLI) | payer MEDICARE, SELFPAY ==
[2017-11-25 12:28] VITALS: BMI 21.6
[2021-03-22 08:13] LABS: INR 1.9 (0.9-1.3); Prothrombin Time 22.2 SECONDS (10.1-12.7)
== END ==
PROVIDERS: Family Provider Family Medicine; PCP Family Medicine; Referring Provider Internal Medicine Cardiovascular Disease; Visit Provider Internal Medicine Cardiovascular Disease
DX: I48.20 Chronic atrial fibrillation, unspecified (principal)
CPT/HCPCS: 36415; 85610

== ENCOUNTER → 2021-04-09 09:08 | Outpatient (CLI) | payer MEDICARE, SELFPAY ==
[2017-11-25 12:28] VITALS: BMI 21.6
[2021-04-09 14:17] LABS: INR 2.1 (0.9-1.3); Prothrombin Time 24.5 SECONDS (10.1-12.7)
== END ==
PROVIDERS: Family Provider Family Medicine; PCP Family Medicine; Referring Provider Internal Medicine Cardiovascular Disease; Visit Provider Internal Medicine Cardiovascular Disease
DX: I48.20 Chronic atrial fibrillation, unspecified (principal)
CPT/HCPCS: 36415; 85610

== ENCOUNTER → 2021-05-22 11:58 | Outpatient (CLI) | payer MEDICARE, SELFPAY ==
[2017-11-25 12:28] VITALS: BMI 21.6
[2021-05-22 12:53] LABS: INR 2.2 (0.9-1.3); Prothrombin Time 25.1 SECONDS (10.1-12.7)
== END ==
PROVIDERS: Family Provider Family Medicine; PCP Family Medicine; Referring Provider Internal Medicine Cardiovascular Disease; Visit Provider Internal Medicine Cardiovascular Disease
DX: I48.20 Chronic atrial fibrillation, unspecified (principal)
CPT/HCPCS: 36415; 85610

== ENCOUNTER → 2021-06-26 10:46 | Outpatient (CLI) | payer MEDICARE, SELFPAY ==
[2017-11-25 12:28] VITALS: BMI 21.6
[2021-06-26 14:57] LABS: Prothrombin Time 22.8 SECONDS (10.1-12.7)
== END ==
PROVIDERS: Family Provider Family Medicine; PCP Family Medicine; Referring Provider Internal Medicine Cardiovascular Disease; Visit Provider Internal Medicine Cardiovascular Disease
DX: I48.20 Chronic atrial fibrillation, unspecified (principal)
CPT/HCPCS: 36415; 85610

== ENCOUNTER → 2021-07-24 13:34 | Outpatient (CLI) | payer MEDICARE, SELFPAY ==
[2017-11-25 12:28] VITALS: BMI 21.6
[2021-07-24 15:37] LABS: INR 1.8 (0.9-1.3); Prothrombin Time 20.2 SECONDS (10.1-12.7)
== END ==
PROVIDERS: Family Provider Family Medicine; PCP Family Medicine; Referring Provider Internal Medicine Cardiovascular Disease; Visit Provider Internal Medicine Cardiovascular Disease
DX: I48.20 Chronic atrial fibrillation, unspecified (principal)
CPT/HCPCS: 36415; 85610

== ENCOUNTER 2021-08-05 17:41 | Emergency (ER) | payer MEDICARE, SELFPAY ==
[2017-11-25 12:28] VITALS: BMI 21.6
[2021-08-05] VITALS (16 sets, daily range): BP systolic 138–197; BP diastolic 66–111; PULSE 68–89; RESP 22–36; TEMP 37; O2SAT 93–98
--- NOTE | 2021-08-05 17:52 | DI.RAD.S_ITS ---
PROCEDURE: XR CHEST 2V INDICATIONS: shortness of breath TECHNIQUE: 2 views of the chest were acquired. COMPARISON: [facility], CHEST 2 VIEW, 03/07/2017, 13:27. [facility], , XR CHEST 2V, 10/17/2020, 12:21. FINDINGS: Surgical changes and devices: Sternotomy wires are seen. A prosthetic cardiac valve is again seen. Along the left cardiac border, there is a metallic closure device seen. Lungs and pleura: Interstitial prominence can be seen. No pleural effusions or pneumothorax. The lungs are hyperexpanded, with flattening of the hemidiaphragms seen. Mediastinum: Mediastinal contours are normal. Heart size is moderately enlarged. Bones and chest wall: No suspicious bony abnormalities. Age-appropriate bony degenerative changes are seen. Accentuated thoracic kyphosis is seen. Soft tissues appear unremarkable. IMPRESSION: Cardiomegaly and interstitial prominence. Please correlate with patient presentation, physical examination findings, and laboratory values for congestive heart failure. Postoperative and degenerative changes are seen. Dictated by: Santhosh Valadez M.D. on 08/05/2021 at 17:13 Approved by: Santhosh Valadez M.D. on 08/05/2021 at 17:15
--- NOTE | 2021-08-05 18:02 | ED_ITS ---
HPI - SOB/Dyspnea General Chief Complaint: Shortness of Breath/Dyspnea Stated Complaint: SOB Dyspnea no energy Time Seen by Provider: 08/05/21 18:02 Source: patient and family Mode of arrival: Wheelchair History of Present Illness HPI Narrative: 86-year-old female nonsmoker with cardiac history presents with about 1 week of worsening shortness of breath or cough. She has a prior mitral valve annuloplasty, known coronary artery disease, hypertension, CHF, nonischemic cardiomyopathy, AFib and is anticoagulated on Coumadin. She recently travelled to [place] and came home a few days ago. She has had no fever chills and denies nausea or vomiting. She denies any weight gain. She has had no change in her medications or dietary change. She states that she is short of breath all time, denies any change with exertion or lying flat and no fluctuation in her weight. She denies exposure to ill persons Related Data Home Medications Medication Instructions Recorded Confirmed vitamin B complex (B 1 tab PO QDAY #0 03/06/17 12/08/17 Complex-Vitamin B12) triamterene 37.5 1 tab OR Q DAY #0 03/12/17 01/10/21 mg-hydrochlorothiazide 25 mg tablet losartan 25 mg tablet 25 mg PO DAILY 12/26/17 01/10/21 carvedilol 6.25 mg tablet 6.25 mg PO BID 01/10/21 01/10/21 furosemide 20 mg tablet 20 mg PO Q OTHER DAY 01/10/21 01/10/21 gabapentin 300 mg capsule 300 mg PO DAILY 01/10/21 01/10/21 magnesium hydroxide 400 mg/5 mL 400 mg PO DAILY PRN 01/10/21 01/10/21 oral suspension potassium chloride 10 mEq 10 meq PO DAILY 01/10/21 01/10/21 capsule,extended release Previous Rx's Medication Instructions Recorded diazepam 5 mg tablet 5 mg PO BID PRN #14 tab 12/08/17 warfarin 2.5 mg tablet 2.5 mg PO DAILY #30 tab 12/08/17 Allergies Allergy/AdvReac Type Severity Reaction Status Date / Time lidocaine [From XYLOCAINE] Allergy Unknown Verified 01/10/21 14:53 Review of Systems Review of Systems Narrative: GENERAL: See HPI HEENT: Denies sinus pain, ear pain, sore throat, difficulty swallowing, dizziness. RESPIRATORY: See HPI CARDIOVASCULAR: Denies chest pain, palpitations, orthopnea, edema, GASTROINTESTINAL: Denies nausea, vomiting, abdominal pain, diarrhea, constipation, melena. : Denies dysuria, frequency, incontinence, hematuria, urinary retention. MUSCULOSKELETAL: denies weakness, joint pain, or bony pain SKIN: Denies rash, skin lesions, or other NEUROLOGIC: Denies weakness, headache, numbness, change in speech, confusion, seizures, incoordination. PSYCHIATRIC: No concerning psychosocial issues. 12 point review of systems is negative except for those stated above Patient History Medical History (Updated 08/05/21 @ 20:48 by Panda Jaeger DO) Anxiety Atrial fibrillation (2003) Chickenpox (Unknown) Chronic obstructive pulmonary disease (04/11/17) Cirrhosis (2015) Coronary artery disease (Unknown) Degenerative disc disease (~2015) Diastolic CHF (Unknown) Dyspnea on exertion (03/06/17) Hypertension (Unknown) Mitral valve disorder (Unknown) Mitral valve insufficiency (03/06/17) Mumps (Unknown) Neck pain (08/04/15) Nonischemic cardiomyopathy (Unknown) Paroxysmal atrial fibrillation (08/04/15) Shoulder pain (Unknown) Skin cancer (~1999) Vertigo (~2010) Surgical History History of arthroplasty of right knee (08/04/15) History of knee replacement (2003) Status post mitral valve annuloplasty Family History Mother Heart disease Father No problems noted. Social History Smoking Status: Never smoker Tobacco: How many years used: 8 Smoking Status: Never smoker Exam Narrative Exam Narrative: GENERAL: [86 year old patient appears stated age. Well-developed patient, in mild distress. HEAD: Atraumatic. Normocephalic. EYES: Pupils equal round and reactive. Extraocular motions intact. No scleral icterus. No injection or drainage. ENT: Nose without bleeding, purulent drainage. Throat without erythema, tonsillar hypertrophy or exudate. Airway patent. NECK: Trachea midline. Non tender CARDIOVASCULAR: Regular rate and rhythm without murmurs, gallops, or rubs. RESPIRATORY: Crackles in bilateral bases with a wet sound and cough. No significant work of breathing, use of accessory muscles or hypoxemia GASTROINTESTINAL: Abdomen soft, non-tender, nondistended. EXTREMITIES: No edema or joint tenderness. BACK: Nontender without deformity or crepitance. No flank tenderness. NEURO: AOx3. SKIN: No rash or erythema of visible areas Initial Vital Signs Initial Vital Signs: Vital Signs Temperature 98.6 F 08/05/21 17:48 Pulse Rate 89 08/05/21 17:48 Respiratory Rate 22 08/05/21 17:48 Blood Pressure 173/80 H 08/05/21 17:48 Pulse Oximetry 98 08/05/21 17:48 Course Orders Ordered: ED Orders 08/05/21 18:25 BNP [NT-proBNP (BNP-Adult 18+)] Stat Complete Blood Count AUTO DIFF Stat Comprehensive Metabolic Panel Stat D Dimer Stat Lactate (Lactic Acid) Stat Troponin & CK Cardiac Panel Stat 08/05/21 18:42 COVID19 -Nasal RAPID/Pre-Proc Stat Discontinued Medications Carvedilol (Carvedilol 3.125 Mg Tablet) 6.25 mg PO NOW ONE Stop: 08/05/21 19:29 Last Admin: 08/05/21 19:39 Dose: 6.25 mg Documented by: PACO Furosemide (Furosemide 40 Mg/4 Ml Vial) 40 mg IV NOW ONE Stop: 08/05/21 18:22 Last Admin: 08/05/21 18:46 Dose: 40 mg Documented by: MARIE Losartan Potassium (Losartan 50 Mg Tablet) 50 mg PO NOW ONE Stop: 08/05/21 19:29 Last Admin: 08/05/21 19:39 Dose: 50 mg Documented by: PACO Vital Signs Vital signs: Vital Signs - 8 hr 08/05/21 19:30 08/05/21 19:32 08/05/21 19:42 Pulse Rate 78 80 73 Respiratory Rate 36 H 30 H 27 H Blood Pressure 171/81 H 167/72 H Pulse Oximetry 95 94 08/05/21 20:00 08/05/21 20:01 08/05/21 20:15 Pulse Rate 78 78 80 Respiratory Rate Blood Pressure 161/73 H 184/93 H Pulse Oximetry 93 93 95 08/05/21 20:17 08/05/21 20:18 08/05/21 20:30 Pulse Rate 80 82 81 Respiratory Rate Blood Pressure 184/93 H 169/77 H Pulse Oximetry 93 95 95 08/05/21 21:00 Pulse Rate 68 Respiratory Rate Blood Pressure 138/66 Pulse Oximetry MDM - SOB/Dyspnea Lab Data Result diagrams: 08/05/21 18:25 08/05/21 18:25 Labs: Lab Results 08/05/21 08/05/21 08/05/21 Range/Units 18:25 18:25 18:25 WBC 7.7 (4.5-11.0) X10^3/uL RBC 4.32 (4.0-5.2) X10^6/uL Hgb 13.6 (12.0-16.0) g/dL Hct 40.8 (36-46) % MCV 94.5 (80-100) fL MCH 31.6 (26-34) PG MCHC 33.4 (30-36) % RDW 15.0 H (11.6-14.8) % Plt Count 127 L (150-400) X10^3/uL Neut % (Auto) 80.4 H (50-75) % Lymph % (Auto) 9.8 L (25-40) % [place] % (Auto) 9.1 (3-14) % Eos % (Auto) 0.4 L (2-4) % Baso % (Auto) 0.3 (0-2) % Neut # (Auto) 6200 (5795-7718) /uL Lymph # (Auto) 800 L (6926-8449) /uL [place] # (Auto) 700 (0-900) /uL Eos # (Auto) 0 (0-450) /uL Baso # (Auto) 0 (0-100) /uL D-Dimer (<230) ng/mL Sodium 144 (137-145) mmol/L Potassium 4.1 (3.4-5.1) mmol/L Chloride 106 (98-107) mmol/L Carbon Dioxide 25 (22-32) mmol/L BUN 29 H (7-17) mg/dL Creatinine 1.07 H (0.52-1.04) mg/dL Estimated GFR 50 L (>60) mL/min BUN/Creatinine Ratio 27.1 H (6-22) Glucose 114 H (80-110) mg/dL Lactate 1.5 (0.7-2.1) mmol/L Calcium 9.2 (8.4-10.2) mg/dL Total Bilirubin 1.4 H (0.2-1.3) mg/dL AST 33 (14-36) IU/L ALT 21 (<35) IU/L Alkaline Phosphatase 50 (38-126) U/L Total Creatine Kinase (30-135) U/L CK-MB (CK-2) CK-MB (CK-2) Rel Index Troponin I (0.01-0.034) ng/mL NT-Pro-B Natriuret Pep (<450) pg/mL Total Protein 7.6 (6.3-8.2) g/dL Albumin 4.6 (3.5-5.0) g/dL Globulin 3.0 (1.7-4.1) g/dL Albumin/Globulin Ratio 1.5 (1.0-2.8) SARS-CoV-2 (PCR) (Negative) 08/05/21 08/05/21 08/05/21 Range/Units 18:25 18:25 18:42 WBC (4.5-11.0) X10^3/uL RBC (4.0-5.2) X10^6/uL Hgb (12.0-16.0) g/dL Hct (36-46) % MCV (80-100) fL MCH (26-34) PG MCHC (30-36) % RDW (11.6-14.8) % Plt Count (150-400) X10^3/uL Neut % (Auto) (50-75) % Lymph % (Auto) (25-40) % [place] % (Auto) (3-14) % Eos % (Auto) (2-4) % Baso % (Auto) (0-2) % Neut # (Auto) (4263-9293) /uL Lymph # (Auto) (0008-7559) /uL [place] # (Auto) (0-900) /uL Eos # (Auto) (0-450) /uL Baso # (Auto) (0-100) /uL D-Dimer 304 H (<230) ng/mL Sodium (137-145) mmol/L Potassium (3.4-5.1) mmol/L Chloride (98-107) mmol/L Carbon Dioxide (22-32) mmol/L BUN (7-17) mg/dL Creatinine (0.52-1.04) mg/dL Estimated GFR (>60) mL/min BUN/Creatinine Ratio (6-22) Glucose (80-110) mg/dL Lactate (0.7-2.1) mmol/L Calcium (8.4-10.2) mg/dL Total Bilirubin (0.2-1.3) mg/dL AST (14-36) IU/L ALT (<35) IU/L Alkaline Phosphatase (38-126) U/L Total Creatine Kinase 30 (30-135) U/L CK-MB (CK-2) TNP CK-MB (CK-2) Rel Index TNP Troponin I 0.061 H (0.01-0.034) ng/mL NT-Pro-B Natriuret Pep 55802 H (<450) pg/mL Total Protein (6.3-8.2) g/dL Albumin (3.5-5.0) g/dL Globulin (1.7-4.1) g/dL Albumin/Globulin Ratio (1.0-2.8) SARS-CoV-2 (PCR) Negative (Negative) Imaging Data Chest x-ray: Radiologist's Impression: [address] [address] XRay Report Signed Patient: Johnna Rosen MR#: [id number] : 1935 Acct:[id number] Age/Sex: 86 / F Date of Service: 08/05/21 Loc: ED Accession Number: [id number] ?? Procedure: XR chest 2V Ordering Provider: Courtney Davis D.O. PROCEDURE:? XR CHEST 2V ? INDICATIONS:? shortness of breath ? TECHNIQUE:? 2 views of the chest were acquired.? ? COMPARISON:? [facility], CHEST 2 VIEW, 03/07/2017, 13:27.? [facility], XR CHEST 2V, 10/17/2020, 12:21. ? FINDINGS:? ? Surgical changes and devices:? Sternotomy wires are seen.? A prosthetic cardiac valve is again seen.? Along the left cardiac border, there is a metallic closure device seen. ? Lungs and pleura:? Interstitial prominence can be seen.? No pleural effusions or pneumothorax.? The lungs are hyperexpanded, with flattening of the hemidiaphragms seen. ? Mediastinum:? Mediastinal contours are normal.? Heart size is moderately enlarged.? ? Bones and chest wall:? No suspicious bony abnormalities.? Age-appropriate bony degenerative changes are seen.? Accentuated thoracic kyphosis is seen.? ? Soft tissues appear unremarkable.? IMPRESSION:? Cardiomegaly and interstitial prominence. Please correlate with patient presentation, physical examination findings, and laboratory values for congestive heart failure. ? ? Postoperative and degenerative changes are seen.? ? ? Dictated by: Santhosh Valadez M.D. on 08/05/2021 at 17:13 ? ? Approved by: Santhosh Valadez M.D. on 08/05/2021 at 17:15 ? MDM Narrative Medical decision making narrative: Multiple etiologies for patient's symptoms considered including: [CHF versus pneumonia versus electrolyte abnormality versus other Patient's symptoms improved over duration of stay with above-stated therapies. Findings and discharge diagnosis discussed with patient/family followed by verbalization of understanding Return precautions discussed with patient/family whom verbalize understanding. Discharge Plan Departure Patient Disposition: Home Clinical Impression: Acute dyspnea, Acute CHF Instructions: DI for Heart Failure Activity Restrictions/Additional Instructions: *You have been diagnosed with [shortness of breath likely due to fluid overload from mild acute CHF. As we discussed your physical exam, labs, chest x-ray and response to therapies is reassuring. There is no evidence of COVID, heart attack or pneumonia. *What to do: *Please continue to take your regular medications as directed. [ ] New medication prescriptions sent to your pharmacy: [ ] [ ] New medication written as a paper prescription [ ] No new medications given * please take your Lasix every day for the next 4 days and then resume the dosing regimen that you had previously used *Please follow up with your primary care provider in 2-3 days, call for an appointment. Let them know you were seen in the Emergency Department and that we ask that you be seen in follow up. We will electronically transmit a record of today's note if your PCP is in our system *If you do not have a primary care provider please contact the [facility] Resource line at [phone]. They will ask some questions about your medical history and help get you set up with a doctor in the community. *Return to Emergency Department if you should have any new, worsening or concerning symptoms, such as [fever greater than 101 F, shaking chills, worsening pain, persistent vomiting or other bothersome symptoms] Prescriptions: No Action warfarin 2.5 mg tablet 2.5 mg PO DAILY Qty: 30 0RF diazepam 5 mg tablet 5 mg PO BID PRN (Reason: anxiety) Qty: 14 0RF vitamin B complex [B Complex-Vitamin B12] 1 EACH tablet 1 tab PO QDAY Qty: 0 0RF triamterene-hydrochlorothiazid 37.5 MG/25 MG tablet 1 tab OR Q DAY Qty: 0 0RF losartan 25 mg tablet 25 mg PO DAILY 0RF carvedilol 6.25 mg tablet 6.25 mg PO BID 0RF Rx Instructions: must administer with a meal/food furosemide 20 mg tablet 20 mg PO Q OTHER DAY 0RF potassium chloride 10 mEq capsule, extended release 10 meq PO DAILY 0RF gabapentin 300 mg capsule 300 mg PO DAILY 0RF magnesium hydroxide 400 mg/5 mL suspension 400 mg PO DAILY PRN0RF Referrals: David Tariq MD [Primary Care Provider] -
[2021-08-05 18:33] LABS: Add Manual Diff / Slide Review NO; Basophils Absolute Auto 0 /uL (0-100); Basophils Percent Auto 0.3 % (0-2); Eosinophils Absolute Auto 0 /uL (0-450); Eosinophils Percent Auto 0.4 % (2-4); Hematocrit 40.8 % (36-46); Hemoglobin 13.6 g/dL (12.0-16.0); Lymphocytes Absolute Auto 800 /uL (1100-4500); Lymphocytes Percent Auto 9.8 % (25-40); Mean Corpuscular HGB Conc 33.4 % (30-36); Mean Corpuscular Hemoglobin 31.6 PG (26-34); Mean Corpuscular Volume 94.5 fL (80-100); Monocytes Absolute Auto 700 /uL (0-900); Monocytes Percent Auto 9.1 % (3-14); Neutrophils Absolute Auto 6200 /uL (1500-7000); Neutrophils Percent Auto 80.4 % (50-75); Platelet Count 127 X10^3/uL (150-400); Red Blood Cell Count 4.32 X10^6/uL (4.0-5.2); White Blood Cell Count 7.7 X10^3/uL (4.5-11.0)
[2021-08-05 18:43] LABS: Alanine Aminotransferase 21 IU/L (<35); Albumin 4.6 g/dL (3.5-5.0); Albumin Globulin Ratio 1.5 (1.0-2.8); Alkaline Phosphatase 50 U/L (38-126); Aspartate Aminotransferase 33 IU/L (14-36); BUN Creatinine Ratio 27.1 (6-22); Bilirubin Total 1.4 mg/dL (0.2-1.3); Blood Urea Nitrogen 29 mg/dL (7-17); Calcium 9.2 mg/dL (8.4-10.2); Carbon Dioxide 25 mmol/L (22-32); Chloride 106 mmol/L (98-107); Creatine Kinase 30 U/L (30-135); Estimated Glomerular Filt Rate 50 mL/min (>60); Glucose 114 mg/dL (80-110); HEMOLYSIS < 15 (0-50); Potassium 4.1 mmol/L (3.4-5.1); Sodium 144 mmol/L (137-145); Total Protein 7.6 g/dL (6.3-8.2)
[2021-08-05 18:44] LABS: Lactate (Lactic Acid) 1.5 mmol/L (0.7-2.1)
[2021-08-05] MEDS: FUROSEMIDE 40 MG/4 ML VIAL IV (18:46)
[2021-08-05 18:53] LABS: D Dimer 304 ng/mL (<230)
[2021-08-05 18:55] LABS: NT-proBNP (BNP-Adult 18+) 13100 pg/mL (<450); Troponin I 0.061 ng/mL (0.01-0.034)
[2021-08-05 19:03] LABS: COVID19 -Nasal RAPID Negative (Negative)
[2021-08-05] MEDS: carvediloL 3.125 MG TABLET 6.25 MG PO (19:39)
[2021-08-05] MEDS: LOSARTAN 50 MG TABLET PO (19:39)
== END 2021-08-05 21:27 | disposition home or self-care (01) ==
PROVIDERS: Emergency Medicine; Emergency Provider Emergency Medicine; Family Provider Family Medicine; PCP Family Medicine
DX: R06.00 Dyspnea, unspecified (principal); I50.9 Heart failure, unspecified; I11.0 Hypertensive heart disease with heart failure; Z79.01 Long term (current) use of anticoagulants; Z20.822 Contact with and (suspected) exposure to COVID-19
CPT/HCPCS: 36415; 71046; 80053; 82550; 83605; 83880; 84484; 85025; 85379; 87635; 93005; 96374; 99284; C9803; J1940

== ENCOUNTER → 2021-08-08 07:35 | Outpatient (CLI) | payer MEDICARE, SELFPAY ==
[2017-11-25 12:28] VITALS: BMI 21.6
--- NOTE | 2021-08-08 07:37 | DI.US.S_ITS ---
PROCEDURE: US ABDOMEN LIMITED INDICATIONS: EPIGASTRIC PAIN TECHNIQUE: Real-time focused scanning was performed of the abdomen, with image documentation. COMPARISON: None. FINDINGS: Liver is normal in size and echotexture. Sludge is noted in the gallbladder. No gallstones identified. Gallbladder wall is not thickened measuring 0.7 millimeters. No pericholecystic fluid. No sonographic Napier sign. Biliary tree is nondilated. Common bile duct measures 3.8 millimeters. Supraumbilical ventral midline abdominal hernia which contains loop of bowel. 6.9 centimeter anechoic lesion with internal vascular flow noted adjacent to the anterior-inferior margin of the heart. Visualized heart is enlarged. IMPRESSION: 1. No sonographic evidence of cholelithiasis or cholecystitis. 2. Supraumbilical ventral midline hernia which contains a loop of bowel. 3. Cardiomegaly. Lesion adjacent to the anterior-inferior margin of the heart which demonstrates internal vascular flow. 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 Recommend echocardiogram for additional evaluation. Findings recommendations discussed with Dr. Scott on August 08, 2021 at 9:45 a.m.. Dictated by: Ana Adler MD, PhD on 08/08/2021 at 9:34 Approved by: Ana Adler MD, PhD on 08/08/2021 at 9:46
== END ==
PROVIDERS: Family Provider Family Medicine; PCP Family Medicine; Referring Provider Family Medicine; Visit Provider Family Medicine
DX: R10.13 Epigastric pain (principal); K43.2 Incisional hernia without obstruction or gangrene; R10.11 Right upper quadrant pain; I51.7 Cardiomegaly
CPT/HCPCS: 76705

== ENCOUNTER → 2021-08-08 08:21 | Outpatient (CLI) | payer MEDICARE, SELFPAY ==
[2017-11-25 12:28] VITALS: BMI 21.6
[2021-08-08 10:06] LABS: Prothrombin Time 87.3 SECONDS (10.1-12.7)
[2021-08-08 15:19] LABS: INR 7.3 (0.9-1.3)
== END ==
PROVIDERS: Family Provider Family Medicine; PCP Family Medicine; Referring Provider Internal Medicine Cardiovascular Disease; Visit Provider Internal Medicine Cardiovascular Disease
DX: I48.20 Chronic atrial fibrillation, unspecified (principal)
CPT/HCPCS: 36415; 85610

== ENCOUNTER → 2021-11-29 11:47 | Outpatient (CLI) | payer MEDICARE, SELFPAY ==
[2017-11-25 12:28] VITALS: BMI 21.6
--- NOTE | 2021-11-29 | DI.MG.S_ITS ---
BILATERAL DIGITAL SCREENING MAMMOGRAM 3D/2D WITH CAD: 11/29/2021 CLINICAL: Routine screening. Comparison is made to exams dated: 11/16/2020 mammogram, 11/12/2019 mammogram, and 07/24/2018 mammogram - [facility]. The tissue of both breasts is heterogeneously dense. This may lower the sensitivity of mammography. Current study was also evaluated with a Computer Aided Detection (CAD) system. There are benign calcifications in both breasts. There also are benign vascular calcifications in both breasts. No significant masses, calcifications, or other findings are seen in either breast. There has been no significant interval change. IMPRESSION: BENIGN There is no mammographic evidence of malignancy. A 1 year screening mammogram is recommended. This exam was interpreted at Station ID: [id number]. NOTE: For mammograms, a report in lay terms will be sent to the patient. Approximately 15% of breast malignancies will not be visualized mammographically. In the management of a palpable breast mass, a negative mammogram must not discourage biopsy of a clinically suspicious lesion. Electronically Signed By: Jean Paul Howell acr/penrad:11/29/2021 13:07:24 letter sent: Normal Exam ACR BI-RADS Category 2: Benign Finding(s) 3342F
== END ==
PROVIDERS: Family Provider Family Medicine; PCP Family Medicine; Referring Provider Family Medicine; Visit Provider Family Medicine
DX: Z12.31 Encounter for screening mammogram for malignant neoplasm of breast (principal)
CPT/HCPCS: 77063; 77067

== ENCOUNTER → 2022-12-06 12:50 | Outpatient (CLI) | payer MEDICARE, SELFPAY ==
[2017-11-25 12:28] VITALS: BMI 21.6
--- NOTE | 2022-12-06 | DI.MG.S_ITS ---
BILATERAL DIGITAL SCREENING MAMMOGRAM 3D/2D WITH CAD: 12/06/2022 CLINICAL: Routine screening. Comparison is made to exams dated: 11/29/2021 mammogram, 11/16/2020 mammogram, and 11/12/2019 mammogram - [facility]. Both breasts are heterogeneously dense, which may obscure small masses (category c / 51-75% glandular tissue). Current study was also evaluated with a Computer Aided Detection (CAD) system. There are benign calcifications in both breasts. There also are benign vascular calcifications in both breasts. No significant masses, calcifications, or other findings are seen in either breast. There has been no significant interval change. IMPRESSION: BENIGN There is no mammographic evidence of malignancy. A 1 year screening mammogram is recommended. This exam was interpreted at Station ID: [id number]. NOTE: For mammograms, a report in lay terms will be sent to the patient. Approximately 15% of breast malignancies will not be visualized mammographically. In the management of a palpable breast mass, a negative mammogram must not discourage biopsy of a clinically suspicious lesion. Electronically Signed By: Trent robb/glenn:12/06/2022 14:18:22 letter sent: Normal Exam ACR BI-RADS Category 2: Benign Finding(s) 3342F
== END ==
PROVIDERS: Family Provider Family Medicine; PCP Family Medicine; Referring Provider Family Medicine; Visit Provider Family Medicine
DX: Z12.31 Encounter for screening mammogram for malignant neoplasm of breast (principal)
CPT/HCPCS: 77063; 77067

== ENCOUNTER 2023-06-27 10:00 | Emergency (ER) | payer MEDICARE, SELFPAY ==
[2017-11-25 12:28] VITALS: BMI 21.6
[2023-06-27] VITALS (15 sets, daily range): BP systolic 151–190; BP diastolic 69–91; PULSE 50–155; RESP 18–20; TEMP 36.4; O2SAT 90–97; BMI 19.5
--- NOTE | 2023-06-27 10:31 | PC.NURSE ---
Pt came to the ED today because she fell at home and hit her head. Pt has a laceration on her left forehead that is approximately 2.5cm. It is unclear of LOC. Pt denies feeling dizzy or lightheaded prior to fall. Pt reports that she was leaning over to put some dishes away and tipped over. Pt has hx of COPD. A&Ox4 and answers all questions appropriately. Pt takes blood thinners. Pt is accompanied by daughter and son-in-law, both express concerns that pt lives alone and her deteriorating health status. Daughter reports that pt is having difficulty getting around her house and that she is becoming increasingly SOB with activity/exertion. Daughter also states that pt is getting weaker with time and having difficulty performing ADLs without assistance. Daughter and son-in-law have expressed that they would like pt to be admitted because she needs someone to tell her that her health is declining. Provided family members with education regarding hospital admission criteria to assist in managing expectations regarding the pt's plan of care today. Family members declined to speak with [employer] at this time.
--- NOTE | 2023-06-27 11:36 | DI.CT.S_ITS ---
PROCEDURE: CT HEAD/BRAIN WO CON INDICATIONS: head injury anticoagulated TECHNIQUE: Noncontrast 4.5 mm thick angled axial sections acquired from the foramen magnum to the vertex, with coronal and sagittal reformats. For radiation dose reduction, the following was used: automated exposure control, adjustment of mA and/or kV according to patient size. COMPARISON: None. FINDINGS: Image quality: Diagnostic. CSF spaces: Basal cisterns are patent. No extra-axial fluid collections. The ventricles are symmetric in size and shape. Brain: No intracranial bleeds or masses. There is cerebral volume loss for age, with resultant ventricular and sulcal prominence. There are periventricular and deep white matter chronic small vessel ischemic changes. There is intracranial internal carotid artery atherosclerosis. Skull and face: Calvarium and visualized facial bones appear intact, without suspicious lesions. Small left frontal scalp hematoma/laceration. Sinuses: Visualized sinuses and mastoids are clear. IMPRESSION: 1. No acute intracranial process. 2. Moderate atrophy and chronic microvascular ischemic changes. Dictated by: Elizabeth Bone M.D. on 06/27/2023 at 11:56 Approved by: Elizabeth Bone M.D. on 06/27/2023 at 11:57
--- NOTE | 2023-06-27 11:42 | ED.WOUNDLAC ---
HPI - Wound/Laceration General Chief Complaint: Wound/Laceration Stated Complaint: fall, head injury bleeding won't stop Time Seen by Provider: 06/27/23 11:30 Source: patient and family Mode of arrival: Wheelchair History of Present Illness HPI narrative: 79-year-old female anticoagulated on apixaban here with a head injury. Says that she lacerated her forehead bending over to put away a pot in a cabinet. No loss of consciousness according to the patient. She is accompanied by her daughter who assists with history. The patient is unsure when her last tetanus booster was. No other complaints. No neck pain or paresthesias, was at baseline prior to this. Related Data Home Medications Medication Instructions Recorded Confirmed carvedilol 6.25 mg tablet 6.25 mg PO BID 01/10/21 05/22/22 furosemide 20 mg tablet 20 mg PO Q OTHER DAY 01/10/21 05/22/22 gabapentin 300 mg capsule 300 mg PO DAILY 01/10/21 05/22/22 potassium chloride 10 mEq 10 meq PO DAILY 01/10/21 05/22/22 capsule,extended release apixaban 2.5 mg tablet 2.5 mg PO BID 12/19/21 05/22/22 cholecalciferol (vitamin D3) 50 50 mcg PO DAILY 12/19/21 05/22/22 mcg (2,000 unit) capsule empagliflozin 10 mg tablet 10 mg PO DAILY 12/19/21 05/22/22 isosorbide dinitrate 5 mg tablet 5 mg PO BID 12/19/21 05/22/22 losartan 25 mg tablet 50 mg PO DAILY 12/19/21 05/22/22 nitroglycerin 0.4 mg sublingual 0.4 mg sublingual Q5-15M PRN 12/19/21 05/22/22 tablet Allergies Allergy/AdvReac Type Severity Reaction Status Date / Time lidocaine [From XYLOCAINE] Allergy Unknown Verified 12/19/21 14:25 Patient History Medical History (Updated 06/27/23 @ 15:07 by Wood Neri MD) Anxiety Degenerative disc disease (~2015) Mitral valve disorder (Unknown) Nonischemic cardiomyopathy (Unknown) Diastolic CHF (Unknown) Shoulder pain (Unknown) Chickenpox (Unknown) Mumps (Unknown) Hypertension (Unknown) Vertigo (~2010) Cirrhosis (2016) Coronary artery disease (Unknown) Skin cancer (~2000) Atrial fibrillation (2003) Chronic obstructive pulmonary disease (04/11/17) Dyspnea on exertion (03/06/17) Mitral valve insufficiency (03/06/17) Paroxysmal atrial fibrillation (08/04/15) Neck pain (08/04/15) Surgical History Status post mitral valve annuloplasty History of arthroplasty of right knee (08/04/15) History of knee replacement (2003) Family History Mother Heart disease Father No problems noted. Social History Smoking Status: Never smoker Tobacco: How many years used: 8 Smoking Status: Never smoker Substance Use Type: does not use Exam Initial Vital Signs Initial Vital Signs: Vital Signs Temperature 97.6 F 06/27/23 10:09 Pulse Rate 55 L 06/27/23 10:09 Respiratory Rate 18 06/27/23 10:09 Blood Pressure 187/84 H 06/27/23 10:09 Oxygen Delivery Method Room Air 06/27/23 10:09 HENMT Head: other ( 3 cm laceration to left forehead. Gaping slightly. No scalp hematoma or ) Neck Other: Supple without midline tenderness Resp Effort & Inspection: normal respiratory effort and able to speak in complete sentences Cardio Other: normal rate Back/Spine/Pelvis Other: thoracic and lumbar spine are nontender Neuro Other: alert and oriented moving all 4 extremities spontaneously and equally Extrem Other: good range of motion and nontender Procedures Laceration Repair Laceration 1: Site: face ( left forehead) Size (cm): 3 Local Anesthetic: lidocaine 1% Amount of anesthesia used (mL): 2 Skin layer closed with: nylon Skin layer suture size: 5-0 Number of sutures: 3 Technique: simple, interrupted Course Orders Ordered: ED Orders 06/27/23 11:36 CT head/brain wo con Stat Discontinued Medications Acetaminophen (Acetaminophen 325 Mg Tablet) 650 mg PO NOW ONE Stop: 06/27/23 11:42 Last Admin: 06/27/23 11:57 Dose: 650 mg Documented By: MPO Albuterol/Ipratropium (Albuterol/Ipratropium 3 Ml Ampul) 3 ml INH NOW ONE Stop: 06/27/23 13:03 Last Admin: 06/27/23 13:07 Dose: 3 ml Documented By: MELANIE Bacitracin (Bacitracin Oint 0.9 Gm Pckt) 1 applic TOP NOW ONE Stop: 06/27/23 15:07 Diphenhydramine HCl (Diphenhydramine 25 Mg Tablet) 25 mg PO NOW ONE Stop: 06/27/23 14:01 Last Admin: 06/27/23 14:40 Dose: 25 mg Documented By: LOUISA Lidocaine/Epinephrine (Lidocaine 1% W/Epi) 1 ml SUBCUT NOW ONE Stop: 06/27/23 14:01 Last Admin: 06/27/23 14:41 Dose: 1 ml Documented By: LOUISA Vital Signs Vital signs: Vital Signs - 8 hr 06/27/23 10:09 06/27/23 11:35 06/27/23 11:51 Temperature 97.6 F Pulse Rate 55 L 71 65 Respiratory Rate 18 Blood Pressure 187/84 H Pulse Oximetry 90 L Oxygen Delivery Method Room Air 06/27/23 11:51 06/27/23 12:00 06/27/23 12:01 Temperature Pulse Rate 87 69 Respiratory Rate Blood Pressure 179/91 H Pulse Oximetry 91 95 Oxygen Delivery Method 06/27/23 12:01 06/27/23 12:30 06/27/23 12:30 Temperature Pulse Rate 65 Respiratory Rate Blood Pressure 171/79 H 156/89 H Pulse Oximetry Oxygen Delivery Method 06/27/23 13:00 06/27/23 13:01 06/27/23 13:01 Temperature Pulse Rate 155 H 147 H Respiratory Rate Blood Pressure 190/79 H Pulse Oximetry 92 91 Oxygen Delivery Method Room Air 06/27/23 13:07 06/27/23 13:30 06/27/23 13:31 Temperature Pulse Rate 63 71 Respiratory Rate 20 Blood Pressure 186/79 H Pulse Oximetry 97 Oxygen Delivery Method Room Air 06/27/23 13:31 06/27/23 14:00 06/27/23 14:00 Temperature Pulse Rate 68 50 L Respiratory Rate Blood Pressure 164/72 H Pulse Oximetry Oxygen Delivery Method 06/27/23 14:30 06/27/23 14:31 06/27/23 14:31 Temperature Pulse Rate 66 66 Respiratory Rate Blood Pressure 151/69 H Pulse Oximetry Oxygen Delivery Method 06/27/23 15:00 06/27/23 15:00 Temperature Pulse Rate 66 Respiratory Rate Blood Pressure 161/90 H Pulse Oximetry 90 L Oxygen Delivery Method MDM - Wound/Laceration Imaging Data CT scan - head: My Impression: independent review noncontrast CT head no acute findings Radiologist's Impression: no acute findings MDM Narrative Medical decision making narrative: 87-year-old female with a forehead laceration after striking her head on a counter top. This was not a fall. She is anticoagulated, head CT is negative for acute process his mental status is baseline. Laceration was repaired. Recommended routine wound care precautions and suture removal in 5 days. Discharge Plan Departure Patient Disposition: Home Clinical Impression: Laceration Head injury Qualifiers: Encounter type: initial encounter Qualified Code(s): S09.90XA - Unspecified injury of head, initial encounter Instructions: DI for Laceration Repair Activity Restrictions/Additional Instructions: keep wound clean and covered. Apply antibiotic ointment daily. Wound can be covered with a Band-Aid. It is okay to shower beginning tomorrow, gently pad this area dry. Do not submerge the wound in water such as swimming while stitches are in place. Stitches should be removed in 5 days, this can be done with her primary care provider urgent Care with the emergency department. Recheck in the emergency department for increasing redness pain or discharge from the wound or if having increasing headaches nausea or unsteadiness. Prescriptions: No Action losartan 25 mg tablet 50 mg PO DAILY apixaban 2.5 mg tablet 2.5 mg PO BID cholecalciferol (vitamin D3) 50 mcg (2,000 unit) capsule 50 mcg PO DAILY empagliflozin 10 mg tablet 10 mg PO DAILY isosorbide dinitrate 5 mg tablet 5 mg PO BID Rx Instructions: allow nitrate-free interval of 12-14 hrs per 24-hr period nitroglycerin 0.4 mg tablet, sublingual 0.4 mg sublingual Q5-15M PRN Rx Instructions: do not exceed 3 doses per episode carvedilol 6.25 mg tablet 6.25 mg PO BID Rx Instructions: must administer with a meal/food furosemide 20 mg tablet 20 mg PO Q OTHER DAY potassium chloride 10 mEq capsule, extended release 10 meq PO DAILY gabapentin 300 mg capsule 300 mg PO DAILY Referrals: Catrachito Orlando DO [Primary Care Provider] - Stand Alone Forms: Patient Portal/API
[2023-06-27] MEDS: ACETAMINOPHEN 325 MG TABLET 650 MG PO (11:57)
[2023-06-27] MEDS: ALBUTEROL/IPRATROPIUM 3 ML AMPUL INH (13:07)
--- NOTE | 2023-06-27 13:16 | PC.NURSE ---
Discussed lidocane allergy with pt. Pt states that previous encounters lidocane has been used in addition to benadryl to control itching.
[2023-06-27] MEDS: diphenhydrAMINE 25 MG TABLET PO (14:40)
[2023-06-27] MEDS: LIDOCAINE 1% W/EPI 1 ML SUBCUT (14:41)
== END 2023-06-27 15:25 | disposition home or self-care (01) ==
PROVIDERS: Emergency Provider Emergency Medicine; Family Provider Family Medicine; PCP Family Medicine
DX: S01.81XA Laceration without foreign body of other part of head, initial encounter (principal); W22.8XXA Striking against or struck by other objects, initial encounter; Z79.01 Long term (current) use of anticoagulants
CPT/HCPCS: 12013; 70450; 94640; 99284

== ENCOUNTER 2023-07-05 10:07 | Emergency (ER) | payer MEDICARE, SELFPAY ==
[2017-11-25 12:28] VITALS: BMI 21.6
[2023-07-05 10:08] VITALS: BP 155/76; PULSE 72; RESP 18; TEMP 36.5; O2SAT 93; BMI 20.2
[2023-07-05 10:16] VITALS: PULSE 81; O2SAT 92
[2023-07-05 10:17] VITALS: BP 155/76
--- NOTE | 2023-07-05 11:01 | ED_ITS ---
HPI - Abdominal Pain <Godfrey Gomez PA-C - Last Filed: 07/05/23 11:23> General Chief Complaint: Abdominal Pain Stated Complaint: hernia just below ribs, pain Time Seen by Provider: 07/05/23 11:01 Source: patient Mode of arrival: Wheelchair History of Present Illness HPI narrative: This is a 87-year-old female presents emergency department due to An abdominal hernia that she states she was usually able to reduce on her own but was unable to reduce this morning after eating breakfast. She states that it did cause her some pain. Denies any nausea, vomiting, fevers, or any other concerning signs or symptoms. States that she was spoken with a general surgeon about this hernia but states that she was told that she was not a good surgical candidate. Related Data Home Medications Medication Instructions Recorded Confirmed carvedilol 6.25 mg tablet 6.25 mg PO BID 01/10/21 05/22/22 furosemide 20 mg tablet 20 mg PO Q OTHER DAY 01/10/21 05/22/22 gabapentin 300 mg capsule 300 mg PO DAILY 01/10/21 05/22/22 potassium chloride 10 mEq 10 meq PO DAILY 01/10/21 05/22/22 capsule,extended release apixaban 2.5 mg tablet 2.5 mg PO BID 12/19/21 05/22/22 cholecalciferol (vitamin D3) 50 50 mcg PO DAILY 12/19/21 05/22/22 mcg (2,000 unit) capsule empagliflozin 10 mg tablet 10 mg PO DAILY 12/19/21 05/22/22 isosorbide dinitrate 5 mg tablet 5 mg PO BID 12/19/21 05/22/22 losartan 25 mg tablet 50 mg PO DAILY 12/19/21 05/22/22 nitroglycerin 0.4 mg sublingual 0.4 mg sublingual Q5-15M PRN 12/19/21 05/22/22 tablet Allergies Allergy/AdvReac Type Severity Reaction Status Date / Time lidocaine [From XYLOCAINE] Allergy Unknown Verified 07/05/23 10:17 Review of Systems <Godfrey Gomez PA-C - Last Filed: 07/05/23 11:23> Review of Systems Narrative: GENERAL: Denies chills, fatigue, malaise, fever, sweats. HEENT: Denies sinus pain, ear pain, sore throat, difficulty swallowing, dizziness. RESPIRATORY: Denies dyspnea, cough, wheezing, hemoptysis, sputum. CARDIOVASCULAR: Denies chest pain, palpitations, orthopnea, edema, GASTROINTESTINAL: Reports abdominal hernia with painDenies nausea, vomiting, diarrhea, constipation, melena. : Denies dysuria, frequency, incontinence, hematuria, urinary retention. MUSCULOSKELETAL: denies weakness, joint pain, or bony pain SKIN: Denies rash, skin lesions, or other NEUROLOGIC: Denies weakness, headache, numbness, change in speech, confusion, seizures, incoordination. PSYCHIATRIC: No concerning psychosocial issues. 12 point review of systems is negative except for those stated above Patient History <Godfrey Gomez PA-C - Last Filed: 07/05/23 11:23> Medical History (Updated 07/05/23 @ 11:23 by Godfrey Gomez PA-C) Anxiety Degenerative disc disease (~2015) Mitral valve disorder (Unknown) Nonischemic cardiomyopathy (Unknown) Diastolic CHF (Unknown) Shoulder pain (Unknown) Chickenpox (Unknown) Mumps (Unknown) Hypertension (Unknown) Vertigo (~2010) Cirrhosis (2015) Coronary artery disease (Unknown) Skin cancer (~1999) Atrial fibrillation (2003) Chronic obstructive pulmonary disease (04/11/17) Dyspnea on exertion (03/06/17) Mitral valve insufficiency (03/06/17) Paroxysmal atrial fibrillation (08/04/15) Neck pain (08/04/15) Surgical History Status post mitral valve annuloplasty History of arthroplasty of right knee (08/04/15) History of knee replacement (2003) Family History Mother Heart disease Father No problems noted. Social History Smoking Status: Never smoker Tobacco: How many years used: 8 Smoking Status: Never smoker alcohol intake frequency: holidays/special occasions only Substance Use Type: does not use Exam <Godfrey Gomez PA-C - Last Filed: 07/05/23 11:23> Narrative Exam Narrative: GENERAL: Well-developed patient, in mild distress. HEAD: Atraumatic. Normocephalic. EYES: Pupils equal round and reactive. Extraocular motions intact. No scleral icterus. No injection or drainage. ENT: Nose without bleeding, purulent drainage. Throat without erythema, tonsillar hypertrophy or exudate. Airway patent. NECK: Trachea midline. Non tender EXTREMITIES: No edema or joint tenderness. NEURO: AOx3. SKIN: No rash or erythema of visible areas abdomen: Approximately 8 cm in diameter abdominal hernia just inferior to the sternum. no significant erythema or warmth. No discharge. Initial Vital Signs Initial Vital Signs: Vital Signs Temperature 97.7 F 07/05/23 10:08 Pulse Rate 72 07/05/23 10:08 Respiratory Rate 18 07/05/23 10:08 Blood Pressure 155/76 H 07/05/23 10:08 Pulse Oximetry 93 07/05/23 10:08 Oxygen Delivery Method Room Air 07/05/23 10:08 <Autumn Weinstein DO - Last Filed: 07/05/23 15:13> Initial Vital Signs Initial Vital Signs: Vital Signs Temperature 97.7 F 07/05/23 10:08 Pulse Rate 72 07/05/23 10:08 Respiratory Rate 18 07/05/23 10:08 Blood Pressure 155/76 H 07/05/23 10:08 Pulse Oximetry 93 07/05/23 10:08 Oxygen Delivery Method Room Air 07/05/23 10:08 Course <Godfrey Gomez PA-C - Last Filed: 07/05/23 11:23> Vital Signs Vital signs: Vital Signs - 8 hr 07/05/23 10:08 07/05/23 10:16 07/05/23 10:17 Temperature 97.7 F Pulse Rate 72 81 Respiratory Rate 18 Blood Pressure 155/76 H 155/76 H Pulse Oximetry 93 92 Oxygen Delivery Method Room Air 07/05/23 11:30 Temperature Pulse Rate 60 Respiratory Rate Blood Pressure 145/68 H Pulse Oximetry 94 Oxygen Delivery Method <Autumn Weinstein DO - Last Filed: 07/05/23 15:13> Vital Signs Vital signs: Vital Signs - 8 hr 07/05/23 10:08 07/05/23 10:16 07/05/23 10:17 Temperature 97.7 F Pulse Rate 72 81 Respiratory Rate 18 Blood Pressure 155/76 H 155/76 H Pulse Oximetry 93 92 Oxygen Delivery Method Room Air 07/05/23 11:30 Temperature Pulse Rate 60 Respiratory Rate Blood Pressure 145/68 H Pulse Oximetry 94 Oxygen Delivery Method MDM - Abdominal Pain <Godfrey Gomez PA-C - Last Filed: 07/05/23 11:23> [facility] Narrative Medical decision making narrative: ED course: This is a 87-year-old female presents to the emergency department due to a longstanding hernia that she was unable to reduce this morning. On exam patient did appear to have a abdominal hernia that was relatively easily reduced after lying her at approximately a 30 degree angle. Patient has already spoken with the surgeon and been told that she was not a good surgical candidate for hernia repair. We will trial an abdominal binder to help the hernia from coming back out. She does not present with any nausea, vomiting, fevers, or any other concerns that would be concerning for any kind of strangulation or incarceration. CC: Abdominal hernia Complicating co-morbidities: significant medical history as noted below. Data collected from: Previous notes Medical records reviewed: Patient was seen here about a week ago due to a fall and head injury. On apixaban. History of hypertension, AFib, COPD, CHF. Head CT was negative. Laceration was repaired. Differential considered, but not limited to: Abdominal hernia, small-bowel obstruction, strangulated hernia, incarcerated hernia Exam documented above, pertinent findings include: palpable hernia that was reduced Lab Test results independently reviewed as above. Pertinent findings: none obtained Imaging studies independently reviewed: none obtained Scores Used: None MIPS Elements: None Consultations: None Treatments: abdominal binder Re-evaluations: none Discussion: Discussed plan with the patient was comfortable with the plan Diagnosis: abdominal hernia Disposition: see below, along with detailed discharge instructions that have been reviewed with patient as well as indications for ED re-evaluation and additional outpatient follow up Discharge Plan Departure Patient Disposition: Home Clinical Impression: Abdominal hernia Instructions: Abdominal Hernia Activity Restrictions/Additional Instructions: Thank you for coming to the [facility] Emergency Department today. I am glad that we are able to reduce the hernia today. You may use the abdominal binder given to to see that will help the hernia from coming back out. You may also consider speaking with your surgeon if there are any other alternatives or if you would be a possible candidate for surgery. please read the attached instructions for ways you can prevent the hernia from coming back out. Please return to the emergency department if you develop any Significant pain, fevers, nausea, vomiting or any other concerning signs or symptoms. I hope you feel better soon. Please follow up with your primary care provider within a week if your symptoms continue. If you do not have a primary care provider please contact the [facility] Resource line at [phone]. They will ask some questions about your medical history and help you get set up with a provider in the community. Prescriptions: No Action losartan 25 mg tablet 50 mg PO DAILY apixaban 2.5 mg tablet 2.5 mg PO BID cholecalciferol (vitamin D3) 50 mcg (2,000 unit) capsule 50 mcg PO DAILY empagliflozin 10 mg tablet 10 mg PO DAILY isosorbide dinitrate 5 mg tablet 5 mg PO BID Rx Instructions: allow nitrate-free interval of 12-14 hrs per 24-hr period nitroglycerin 0.4 mg tablet, sublingual 0.4 mg sublingual Q5-15M PRN Rx Instructions: do not exceed 3 doses per episode carvedilol 6.25 mg tablet 6.25 mg PO BID Rx Instructions: must administer with a meal/food furosemide 20 mg tablet 20 mg PO Q OTHER DAY potassium chloride 10 mEq capsule, extended release 10 meq PO DAILY gabapentin 300 mg capsule 300 mg PO DAILY Referrals: Catrachito Orlando DO [Primary Care Provider] - Stand Alone Forms: Patient Portal/API ED Sign-out <Autumn Weinstein DO - Last Filed: 07/05/23 15:13> Cosign ED Attending Daniele Attestation: I was available for consultation.
[2023-07-05 11:30] VITALS: BP 145/68; PULSE 60; O2SAT 94
--- NOTE | 2023-07-05 11:49 | PC.NURSE ---
abd binder in place
== END 2023-07-05 11:50 | disposition home or self-care (01) ==
PROVIDERS: Emergency Provider Physician Assistant Medical; Family Provider Family Medicine; PCP Family Medicine
DX: K46.9 Unspecified abdominal hernia without obstruction or gangrene (principal); Z79.01 Long term (current) use of anticoagulants; Z79.899 Other long term (current) drug therapy
CPT/HCPCS: 36415; 99283

== ENCOUNTER 2023-08-16 13:12 | Emergency (ER) | payer MEDICARE, SELFPAY ==
[2017-11-25 12:28] VITALS: BMI 21.6
[2023-08-16 13:18] VITALS: BP 122/60; PULSE 70; RESP 22; TEMP 36.3; O2SAT 94; BMI 24.1
--- NOTE | 2023-08-16 13:38 | DI.RAD.S_ITS ---
PROCEDURE: XR CHEST 1V INDICATIONS: Short of breath TECHNIQUE: One view of the chest was acquired. COMPARISON: [facility], CR, XR CHEST 2V, 10/17/2020, 12:21. [facility], CR, XR CHEST 2V, 08/05/2021, 17:43. FINDINGS: Surgical changes and devices: Sternotomy wires are seen. Cardiac postoperative change can be seen on the left. Lungs and pleura: Bilateral pleural effusions are seen. Generalized interstitial prominence can be seen. No large pneumothorax can be seen on this semiupright study. Mediastinum: Moderate cardiomegaly is seen. Atherosclerotic calcification of the aortic arch is noted. Bones and chest wall: No suspicious bony lesions. Age-appropriate bony degenerative changes are seen. Overlying soft tissues appear unremarkable. IMPRESSION: There is cardiomegaly with bilateral pleural effusions and generalized interstitial pulmonary prominence. High suspicion for CSF based on imaging findings. Postoperative and degenerative changes are seen. Dictated by: Santhosh Valadez M.D. on 08/16/2023 at 13:34 Approved by: Santhosh Valadez M.D. on 08/16/2023 at 13:35
--- NOTE | 2023-08-16 13:40 | ED.GENADULT ---
HPI - General Adult General Chief complaint: Shortness of Breath/Dyspnea Stated complaint: blisters on legs, pain. hx of CHF from [facility] Time Seen by Provider: 08/16/23 13:29 Source: patient and family Mode of arrival: Wheelchair History of Present Illness HPI narrative: Patient is an 88-year-old female. Has a history of systolic and diastolic heart failure, hypertension, COPD, anticoagulated, dementia/Alzheimer's, chronic AFib, chronic kidney disease who has spent [address] [facility] after being discharged from a hospital stay. She was here with her daughter. Her daughter states that she was tried multiple times over the past 2 weeks in order to get information from the rehab center. She has not had labs drawn in 2 weeks. She has been getting blisters on her lower extremities and swelling on her lower extremities which they have been wrapping but now she is developing blisters in her upper thighs and buttocks. She was on oxygen at baseline. She was describing some shortness of breath but no chest pain. No fevers. She is getting torsemide 10 mg a day and according to the patient's daughter they have been unable to change this because there was no doctor order for it. Patient's daughters becoming concerned about her care brought her to the emergency department both Related Data Home Medications Medication Instructions Recorded Confirmed carvedilol 6.25 mg tablet 6.25 mg PO BID 01/10/21 05/22/22 furosemide 20 mg tablet 20 mg PO Q OTHER DAY 01/10/21 05/22/22 gabapentin 300 mg capsule 300 mg PO DAILY 01/10/21 05/22/22 potassium chloride 10 mEq 10 meq PO DAILY 01/10/21 05/22/22 capsule,extended release apixaban 2.5 mg tablet 2.5 mg PO BID 12/19/21 05/22/22 cholecalciferol (vitamin D3) 50 50 mcg PO DAILY 12/19/21 05/22/22 mcg (2,000 unit) capsule empagliflozin 10 mg tablet 10 mg PO DAILY 12/19/21 05/22/22 isosorbide dinitrate 5 mg tablet 5 mg PO BID 12/19/21 05/22/22 losartan 25 mg tablet 50 mg PO DAILY 12/19/21 05/22/22 nitroglycerin 0.4 mg sublingual 0.4 mg sublingual Q5-15M PRN 12/19/21 05/22/22 tablet Allergies Allergy/AdvReac Type Severity Reaction Status Date / Time lidocaine [From XYLOCAINE] Allergy Unknown Verified 07/05/23 10:17 Review of Systems Review of Systems Narrative: See HPI Patient History Medical History (Updated 08/16/23 @ 15:04 by Brent Sands DO) Anxiety Degenerative disc disease (~2015) Mitral valve disorder (Unknown) Nonischemic cardiomyopathy (Unknown) Diastolic CHF (Unknown) Shoulder pain (Unknown) Chickenpox (Unknown) Mumps (Unknown) Hypertension (Unknown) Vertigo (~2010) Cirrhosis (2016) Coronary artery disease (Unknown) Skin cancer (~1999) Atrial fibrillation (2003) Chronic obstructive pulmonary disease (04/11/17) Dyspnea on exertion (03/06/17) Mitral valve insufficiency (03/06/17) Paroxysmal atrial fibrillation (08/04/15) Neck pain (08/04/15) Surgical History Status post mitral valve annuloplasty History of arthroplasty of right knee (08/04/15) History of knee replacement (2003) Family History Mother Heart disease Father No problems noted. Social History Smoking Status: Never smoker Tobacco: How many years used: 8 Smoking Status: Never smoker alcohol intake frequency: holidays/special occasions only Substance Use Type: does not use Exam Initial Vital Signs Initial Vital Signs: Vital Signs Temperature 97.3 F L 08/16/23 13:18 Pulse Rate 70 08/16/23 13:18 Respiratory Rate 22 08/16/23 13:18 Blood Pressure 122/60 08/16/23 13:18 Pulse Oximetry 94 08/16/23 13:18 Oxygen Delivery Method Nasal Cannula 08/16/23 13:18 Oxygen Flow Rate 3 08/16/23 13:18 Const General: cooperative and comfortable Resp Effort & Inspection: no cough and tachypneic Auscultation: clear to auscultation bilaterally Cardio Rate: regular rate Rhythm: abnormal rhythm Skin Other: Patient does have changes consistent with chronic venous stasis changes to her lower extremities. There are multiple pustules. Small ulcerations scattered throughout her lower extremities. Neuro General: patient alert and patient awake Extrem General: edema Course Orders Ordered: ED Orders 08/16/23 13:38 XR chest 1V Stat 08/16/23 13:39 EKG-12 Lead Stat 08/16/23 14:05 Complete Blood Count AUTO DIFF Stat Comprehensive Metabolic Panel Stat Lipase Stat NT-proBNP (BNP-Adult 18+) Stat 08/16/23 15:24 Consult to EXECUTIVE SALES ASSISTANT - Staff Psychiatrist Stat Discontinued Medications Torsemide (Torsemide 10 Mg Tablet) 20 mg PO NOW ONE Stop: 08/16/23 14:55 Last Admin: 08/16/23 15:06 Dose: 20 mg Documented By: MOJGAN Vital Signs Vital signs: Vital Signs - 8 hr 08/16/23 13:18 Temperature 97.3 F L Pulse Rate 70 Respiratory Rate 22 Blood Pressure 122/60 Pulse Oximetry 94 Oxygen Delivery Method Nasal Cannula Oxygen Flow Rate 3 Medical Decision Making Lab Data Lab results reviewed: Yes I reviewed the patient's lab results. 08/16/23 14:05 08/16/23 14:05 Labs: Lab Results 08/16/23 Range/Units 14:05 WBC 4.2 L (4.5-11.0) X10^3/uL RBC 2.92 L (4.0-5.2) X10^6/uL Hgb 9.6 L (12.0-16.0) g/dL Hct 28.5 L (36-46) % MCV 97.9 (80-100) fL MCH 32.8 (26-34) PG MCHC 33.5 (30-36) % RDW 17.1 H (11.6-14.8) % Plt Count 125 L (150-400) X10^3/uL Neut % (Auto) 68.4 (50-75) % Lymph % (Auto) 18.2 L (25-40) % [place] % (Auto) 11.4 (3-14) % Eos % (Auto) 1.7 L (2-4) % Baso % (Auto) 0.3 (0-2) % Neut # (Auto) 2900 (3952-9850) /uL Lymph # (Auto) 800 L (9800-5647) /uL [place] # (Auto) 500 (0-900) /uL Eos # (Auto) 100 (0-450) /uL Baso # (Auto) 0 (0-100) /uL Sodium 138 (137-145) mmol/L Potassium 3.8 (3.4-5.1) mmol/L Chloride 99 (98-107) mmol/L Carbon Dioxide 37 H (22-32) mmol/L BUN 49 H (7-17) mg/dL Creatinine 1.55 H (0.52-1.04) mg/dL Estimated GFR 32 L (>60) mL/min BUN/Creatinine Ratio 31.6 H (6-22) Glucose 80 (80-110) mg/dL Calcium 8.5 (8.4-10.2) mg/dL Total Bilirubin 1.2 (0.2-1.3) mg/dL AST 25 (14-36) IU/L ALT 12 (<35) IU/L Alkaline Phosphatase 51 (38-126) U/L NT-Pro-B Natriuret Pep 72937 H (<450) pg/mL Total Protein 5.9 L (6.3-8.2) g/dL Albumin 3.2 L (3.5-5.0) g/dL Globulin 2.7 (1.7-4.1) g/dL Albumin/Globulin Ratio 1.2 (1.0-2.8) Lipase 187 (23-300) U/L Imaging Data Chest x-ray: Radiologist's Impression: PROCEDURE: XR CHEST 1V INDICATIONS: Short of breath TECHNIQUE: One view of the chest was acquired. COMPARISON: [facility], , XR CHEST 2V, 10/17/2020, 12:21. [facility], , XR CHEST 2V, 08/05/2021, 17:43. FINDINGS: Surgical changes and devices: Sternotomy wires are seen. Cardiac postoperative change can be seen on the left. Lungs and pleura: Bilateral pleural effusions are seen. Generalized interstitial prominence can be seen. No large pneumothorax can be seen on this semiupright study. Mediastinum: Moderate cardiomegaly is seen. Atherosclerotic calcification of the aortic arch is noted. Bones and chest wall: No suspicious bony lesions. Age-appropriate bony degenerative changes are seen. Overlying soft tissues appear unremarkable. IMPRESSION: There is cardiomegaly with bilateral pleural effusions and generalized interstitial pulmonary prominence. High suspicion for CSF based on imaging findings. Postoperative and degenerative changes are seen MDM Narrative Medical decision making narrative: Patient is on oxygen at baseline. She does have ulcerations on her lower extremities without signs of infection. She does have swelling to her lower extremities. Also having blistering. Chest x-ray shows pulmonary edema. Does have elevation in BNP. Is on 10 mg of her diuretic once a day. Plan will be to increase this to 20 mg once a day. No indication for antibiotics. No indication to change any of her other medications. There was no indication for admission to the today. Discharge patient home with return precautions. Discharge Plan Departure Patient Disposition: Home Clinical Impression: Congestive heart failure (CHF), Peripheral edema Instructions: DI for Peripheral Edema -- Bilateral Activity Restrictions/Additional Instructions: Continue to take all of your medications as directed except increase the furosemide from 10 mg by mouth on a daily basis to 20 mg by mouth in her daily basis. This may need to be increased further however we do need to make incremental increase. You can continue to wrap the blisters on your lower extremities however making the wraps looser can be helpful. Following up with your primary doctor and also the provider at the rehab is important. Return to an emergency department for new symptoms. Prescriptions: No Action losartan 25 mg tablet 50 mg PO DAILY apixaban 2.5 mg tablet 2.5 mg PO BID cholecalciferol (vitamin D3) 50 mcg (2,000 unit) capsule 50 mcg PO DAILY empagliflozin 10 mg tablet 10 mg PO DAILY isosorbide dinitrate 5 mg tablet 5 mg PO BID Rx Instructions: allow nitrate-free interval of 12-14 hrs per 24-hr period nitroglycerin 0.4 mg tablet, sublingual 0.4 mg sublingual Q5-15M PRN Rx Instructions: do not exceed 3 doses per episode carvedilol 6.25 mg tablet 6.25 mg PO BID Rx Instructions: must administer with a meal/food furosemide 20 mg tablet 20 mg PO Q OTHER DAY potassium chloride 10 mEq capsule, extended release 10 meq PO DAILY gabapentin 300 mg capsule 300 mg PO DAILY Referrals: Catrachito Orlando DO [Primary Care Provider] - Stand Alone Forms: Patient Portal/API
[2023-08-16 14:16] LABS: Add Manual Diff / Slide Review NO; Basophils Absolute Auto 0 /uL (0-100); Basophils Percent Auto 0.3 % (0-2); Eosinophils Absolute Auto 100 /uL (0-450); Eosinophils Percent Auto 1.7 % (2-4); Hematocrit 28.5 % (36-46); Hemoglobin 9.6 g/dL (12.0-16.0); Lymphocytes Absolute Auto 800 /uL (1100-4500); Lymphocytes Percent Auto 18.2 % (25-40); Mean Corpuscular HGB Conc 33.5 % (30-36); Mean Corpuscular Hemoglobin 32.8 PG (26-34); Mean Corpuscular Volume 97.9 fL (80-100); Monocytes Absolute Auto 500 /uL (0-900); Monocytes Percent Auto 11.4 % (3-14); Neutrophils Absolute Auto 2900 /uL (1500-7000); Neutrophils Percent Auto 68.4 % (50-75); Platelet Count 125 X10^3/uL (150-400); Red Blood Cell Count 2.92 X10^6/uL (4.0-5.2); Red Cell Distribution Width 17.1 % (11.6-14.8); White Blood Cell Count 4.2 X10^3/uL (4.5-11.0)
[2023-08-16 14:27] LABS: Alanine Aminotransferase 12 IU/L (<35); Albumin 3.2 g/dL (3.5-5.0); Albumin Globulin Ratio 1.2 (1.0-2.8); Alkaline Phosphatase 51 U/L (38-126); Aspartate Aminotransferase 25 IU/L (14-36); BUN Creatinine Ratio 31.6 (6-22); Bilirubin Total 1.2 mg/dL (0.2-1.3); Blood Urea Nitrogen 49 mg/dL (7-17); Calcium 8.5 mg/dL (8.4-10.2); Carbon Dioxide 37 mmol/L (22-32); Chloride 99 mmol/L (98-107); Estimated Glomerular Filt Rate 32 mL/min (>60); Globulin 2.7 g/dL (1.7-4.1); Glucose 80 mg/dL (80-110); HEMOLYSIS < 15 (0-50); Lipase 187 U/L (23-300); Potassium 3.8 mmol/L (3.4-5.1); Sodium 138 mmol/L (137-145); Total Protein 5.9 g/dL (6.3-8.2)
[2023-08-16 14:35] LABS: NT-proBNP (BNP-Adult 18+) 19600 pg/mL (<450)
[2023-08-16] MEDS: TORSEMIDE 10 MG TABLET 20 MG PO (15:06)
--- NOTE | 2023-08-16 16:03 | CM.SWNOTE ---
ED PRESS SETTER Note: Pt is a 88yo F, resident of [place], who presents to the ED with her daughter due to peripheral edema and CHF. Pt is currently admitted at [facility] (admitted 08/01-present) following being inpatient at [facility]. PRESS SETTER was consulted to discuss discharge plans and possibly referral to more support at home for pt after discharging from SNF. PRESS SETTER met with pt and present in the room is pt's daughter, Jojo Peñaloza. PRESS SETTER introduced self and role; pt was ready for discharge at the time of meeting. Pt's daughter requested to speak with this PRESS SETTER outside of the room. Pt's daughter discussed frustration towards care at SNF due to pt's increasing edema which has been a barrier to pt working towards goals of increasing mobility at the SNF. Pt's daughter reports pt lives alone but pt's daughter lives five minutes away and is willing to move in with pt if necessary. Pt daughter plans to return pt to [facility] to continue plan of care while coordinating discharge plan with their team. Pt's daughter endorsed previously having services open with [facility] prior to inpatient admission on 07/26/2023. PRESS SETTER discussed calling [facility] to inquire about continued services after discharge from SNF; encouraged pt's daughter to continue to advocate for her mother's care and ensuring these services are available prior to discharging from SNF. Pt's daughter verbalized understanding. PRESS SETTER provided the most updated list of in-home caregivers and agencies to pt's daughter for review - pt's daughter appreciated resources. Plan: Pt to discharge back to [facility]. ALMAZ iDaz
== END 2023-08-16 16:15 | disposition home or self-care (01) ==
PROVIDERS: Emergency Provider Emergency Medicine; Family Provider Family Medicine; PCP Family Medicine
DX: I11.0 Hypertensive heart disease with heart failure (principal); I50.9 Heart failure, unspecified
CPT/HCPCS: 36415; 71045; 80053; 83690; 83880; 85025; 99284

== ENCOUNTER 2023-08-23 19:16 | Emergency (ER) | payer MEDICARE, SELFPAY ==
[2017-11-25 12:28] VITALS: BMI 21.6
[2023-08-23 19:28] VITALS: BP 81/44; PULSE 120; RESP 50; TEMP 36.4; O2SAT 98; BMI 25.4
--- NOTE | 2023-08-23 19:29 | ED.GENADULT ---
HPI - General Adult General Chief complaint: Shortness of Breath/Dyspnea Stated complaint: dyspnea Time Seen by Provider: 08/23/23 19:29 Source: patient and family Mode of arrival: EMS Limitations: altered mental status History of Present Illness HPI narrative: Patient is an 88-year-old female who was brought in for evaluation of shortness of breath. Patient is a resident a local rehab nursing facility. He was reported that she has a DNR/DNI with limited interventions however the EMS reports that she ?revoked? this prior to transport. Upon arrival patient is unable to provide quite a bit of the HPI. Apparently she has been short of breath but unsure as to when this started. She was able to stay that she was not in any discomfort. She was able to state that she was in the hospital but could not express much more than that. She denied chest pain. Related Data Home Medications Medication Instructions Recorded Confirmed carvedilol 6.25 mg tablet 6.25 mg PO BID 01/10/21 05/22/22 furosemide 20 mg tablet 20 mg PO Q OTHER DAY 01/10/21 05/22/22 gabapentin 300 mg capsule 300 mg PO DAILY 01/10/21 05/22/22 potassium chloride 10 mEq 10 meq PO DAILY 01/10/21 05/22/22 capsule,extended release apixaban 2.5 mg tablet 2.5 mg PO BID 12/19/21 05/22/22 cholecalciferol (vitamin D3) 50 50 mcg PO DAILY 12/19/21 05/22/22 mcg (2,000 unit) capsule empagliflozin 10 mg tablet 10 mg PO DAILY 12/19/21 05/22/22 isosorbide dinitrate 5 mg tablet 5 mg PO BID 12/19/21 05/22/22 losartan 25 mg tablet 50 mg PO DAILY 12/19/21 05/22/22 nitroglycerin 0.4 mg sublingual 0.4 mg sublingual Q5-15M PRN 12/19/21 05/22/22 tablet Allergies Allergy/AdvReac Type Severity Reaction Status Date / Time lidocaine [From XYLOCAINE] Allergy Unknown Verified 07/05/23 10:17 Review of Systems Review of Systems Narrative: Very limited secondary to patient's ability/willingness to participate in the exam. See HPI Patient History Medical History (Updated 08/23/23 @ 23:03 by Brent Lanker, DO) Anxiety Degenerative disc disease (~2015) Mitral valve disorder (Unknown) Nonischemic cardiomyopathy (Unknown) Diastolic CHF (Unknown) Shoulder pain (Unknown) Chickenpox (Unknown) Mumps (Unknown) Hypertension (Unknown) Vertigo (~2010) Cirrhosis (2016) Coronary artery disease (Unknown) Skin cancer (~1999) Atrial fibrillation (2003) Chronic obstructive pulmonary disease (04/11/17) Dyspnea on exertion (03/06/17) Mitral valve insufficiency (03/06/17) Paroxysmal atrial fibrillation (08/04/15) Neck pain (08/04/15) Surgical History Status post mitral valve annuloplasty History of arthroplasty of right knee (08/04/15) History of knee replacement (2003) Family History Mother Heart disease Father No problems noted. Social History Smoking Status: Never smoker Tobacco: How many years used: 8 Smoking Status: Never smoker alcohol intake frequency: holidays/special occasions only Substance Use Type: does not use Exam Initial Vital Signs Initial Vital Signs: Vital Signs Temperature 97.5 F L 08/23/23 19:28 Pulse Rate 120 H 08/23/23 19:28 Respiratory Rate 50 H 08/23/23 19:28 Blood Pressure 81/44 L 08/23/23 19:28 Pulse Oximetry 98 08/23/23 19:28 Oxygen Delivery Method Nasal Cannula 08/23/23 19:28 Oxygen Flow Rate 4 08/23/23 19:28 Const General: ill appearing Resp Effort & Inspection: no cough, labored and tachypneic Auscultation: clear to auscultation bilaterally Cardio Rate: tachycardic Rhythm: regular rhythm GI Inspection: normal to inspection and non-distended Neuro Other: Alert to person and place. Does follow commands. Moves all 4 extremities equally. Course Orders Ordered: ED Orders 08/23/23 19:29 Complete Blood Count AUTO DIFF Stat Comprehensive Metabolic Panel Stat Lipase Stat NT-proBNP (BNP-Adult 18+) Stat Procalcitonin Stat Troponin & CK Cardiac Panel Stat Discontinued Medications Sodium Chloride (Normal Saline 0.9%) 1,000 mls @ 125 mls/hr IV CONT GINGER Last Admin: 08/23/23 20:30 Dose: Not Given Documented By: RL Sodium Chloride (Normal Saline 0.9%) 500 mls @ 500 mls/hr IV BOLUS ONE Stop: 08/23/23 20:29 Last Admin: 08/23/23 20:30 Dose: Not Given Documented By: RAF Vital Signs Vital signs: Vital Signs - 8 hr 08/23/23 19:28 Temperature 97.5 F L Pulse Rate 120 H Respiratory Rate 50 H Blood Pressure 81/44 L Pulse Oximetry 98 Oxygen Delivery Method Nasal Cannula Oxygen Flow Rate 4 Medical Decision Making Medical Records Medical records reviewed: Yes I reviewed the patient's medical records. Lab Data Lab results reviewed: Yes I reviewed the patient's lab results. 08/23/23 19:29 08/23/23 19:29 Labs: Lab Results 08/23/23 Range/Units 19:29 WBC 0.4 L* (4.5-11.0) X10^3/uL RBC 3.11 L (4.0-5.2) X10^6/uL Hgb 10.2 L (12.0-16.0) g/dL Hct 30.4 L (36-46) % MCV 97.6 (80-100) fL MCH 32.7 (26-34) PG MCHC 33.5 (30-36) % RDW 17.8 H (11.6-14.8) % Plt Count 114 L (150-400) X10^3/uL Neut % (Auto) Not Reportable Lymph % (Auto) Not Reportable [place] % (Auto) Not Reportable Eos % (Auto) Not Reportable Baso % (Auto) Not Reportable Lymph # (Auto) Not Reportable [place] # (Auto) Not Reportable Baso # (Auto) Not Reportable Total Counted Not Reportable RBC Morphology Normal morphology Sodium 135 L (137-145) mmol/L Potassium 3.5 (3.4-5.1) mmol/L Chloride 99 (98-107) mmol/L Carbon Dioxide 32 (22-32) mmol/L BUN 58 H (7-17) mg/dL Creatinine 1.78 H (0.52-1.04) mg/dL Estimated GFR 27 L (>60) mL/min BUN/Creatinine Ratio 32.6 H (6-22) Glucose 63 L (80-110) mg/dL Calcium 8.6 (8.4-10.2) mg/dL Total Bilirubin 2.0 H (0.2-1.3) mg/dL AST 29 (14-36) IU/L ALT 14 (<35) IU/L Alkaline Phosphatase 39 (38-126) U/L Total Creatine Kinase 76 (30-135) U/L Troponin I 0.235 H* (0.01-0.034) ng/mL NT-Pro-B Natriuret Pep 15581 H (<450) pg/mL Total Protein 5.2 L (6.3-8.2) g/dL Albumin 2.9 L (3.5-5.0) g/dL Globulin 2.3 (1.7-4.1) g/dL Albumin/Globulin Ratio 1.3 (1.0-2.8) Lipase 16 L D (23-300) U/L Procalcitonin 18.9 H (<0.5) ng/mL MDM Narrative Medical decision making narrative: Patient's daughter arrived shortly after patient's arrival here in the emergency department. Patient's daughter is the medical power of professor of criminal justice. She did confirm that the patient is a DNR/DNI and would not want any interventions done. Patient's daughter initially stated that she did not want anything to include labs or chest x-ray or even fluids. Specifically stated that she did not want the patient to be intubated. Did not want chest compressions. Goal would be comfort measures. I did discuss the case with Leanna Grubbs who is the nurse practitioner on-call for the patient's primary doctor. Initial plan would have been to discharge the patient back to her living facility for comfort measures. We decided to keep the patient in the emergency department for short period of time has she did appear very ill and it appeared that would be imminent. Patient did at 2109 with her daughter at bedside. Patient's daughter would like [email or web address] to be contacted. Discharge Plan Departure Patient Disposition: Clinical Impression: Acute respiratory failure, Hypotension
--- NOTE | 2023-08-23 19:38 | PC.NURSE ---
Pt's daughter, who is POA, states pt is DNR/DNI & does not want any supportive care implemented. Dr Sands notified.
[2023-08-23 20:07] LABS: Alanine Aminotransferase 14 IU/L (<35); Albumin 2.9 g/dL (3.5-5.0); Albumin Globulin Ratio 1.3 (1.0-2.8); Alkaline Phosphatase 39 U/L (38-126); Aspartate Aminotransferase 29 IU/L (14-36); BUN Creatinine Ratio 32.6 (6-22); Blood Urea Nitrogen 58 mg/dL (7-17); Calcium 8.6 mg/dL (8.4-10.2); Carbon Dioxide 32 mmol/L (22-32); Chloride 99 mmol/L (98-107); Creatine Kinase 76 U/L (30-135); Estimated Glomerular Filt Rate 27 mL/min (>60); Globulin 2.3 g/dL (1.7-4.1); Glucose 63 mg/dL (80-110); HEMOLYSIS 19 (0-50); Lipase 16 U/L (23-300); Potassium 3.5 mmol/L (3.4-5.1); Sodium 135 mmol/L (137-145); Total Protein 5.2 g/dL (6.3-8.2)
[2023-08-23 20:15] LABS: Hematocrit 30.4 % (36-46); Hemoglobin 10.2 g/dL (12.0-16.0); Mean Corpuscular HGB Conc 33.5 % (30-36); Mean Corpuscular Hemoglobin 32.7 PG (26-34); Mean Corpuscular Volume 97.6 fL (80-100); Platelet Count 114 X10^3/uL (150-400); Red Blood Cell Count 3.11 X10^6/uL (4.0-5.2); Red Cell Distribution Width 17.8 % (11.6-14.8)
[2023-08-23 20:19] LABS: White Blood Cell Count 0.4 X10^3/uL (4.5-11.0)
[2023-08-23 20:21] LABS: Add Manual Diff / Slide Review YES
[2023-08-23 20:23] LABS: Procalcitonin 18.9 ng/mL (<0.5)
[2023-08-23 20:27] LABS: Troponin I 0.235 ng/mL (0.01-0.034)
[2023-08-23 20:32] LABS: NT-proBNP (BNP-Adult 18+) 93000 pg/mL (<450)
[2023-08-23 20:42] LABS: RBC Morphology Normal Morphology
== END 2023-08-23 23:59 | disposition expired ==
PROVIDERS: Emergency Provider Emergency Medicine; Family Provider Family Medicine; PCP Family Medicine
DX: J96.00 Acute respiratory failure, unspecified whether with hypoxia or hypercapnia (principal); I95.9 Hypotension, unspecified; Z79.899 Other long term (current) drug therapy; Z79.01 Long term (current) use of anticoagulants
CPT/HCPCS: 80053; 81001; 82550; 83690; 83880; 84145; 84484; 85007; 85025; 87077; 87086; 87186; 99284